=== PATIENT | female | born 1955 | race Caucasian/White ===

== ENCOUNTER 2017-01-24 08:30 | Outpatient (CLI) | payer BC ==
[2017-01-24 12:50] LABS: BASOPHILS # (AUTO) 0.1 10^3/uL (0.0-0.1); BASOPHILS % (AUTO) 1.5 %; EOSINOPHILS # (AUTO) 0.3 10^3/uL (0.0-0.7); EOSINOPHILS % (AUTO) 4.5 %; HCT - HEMATOCRIT 45.5 % (37.0-47.0); LYMPHOCYTES # (AUTO) 1.9 10^3/uL (1.5-3.5); LYMPHOCYTES % (AUTO) 32.1 %; MEAN CORPUSCULAR HEMOGLOBIN 30.4 pg (27.0-31.0); MEAN CORPUSCULAR VOLUME 92.1 fL (81.0-99.0); MEAN PLATELET VOLUME 7.9 fL (7.9-10.8); MONOCYTES # (AUTO) 0.4 10^3/uL (0.0-1.0); MONOCYTES % (AUTO) 7.2 %; NEUTROPHILS # (AUTO) 3.2 10^3/uL (1.5-6.6); NEUTROPHILS % (AUTO) 54.7 %; RED BLOOD COUNT 4.93 10^6/uL (4.20-5.40); RED CELL DISTRIBUTION WIDTH 13.9 % (12.0-15.0); UNCORRECTED WHITE BLOOD COUNT 5.9 x10^3/uL; WHITE BLOOD COUNT 5.9 x10^3/uL (4.8-10.8)
[2017-01-24 13:13] LABS: HEMOGLOBIN A1C 1.05 g/dL
[2017-01-24 13:27] LABS: ALBUMIN/GLOBULIN RATIO 1.4 (1.0-2.2); BILIRUBIN,TOTAL 0.8 mg/dL (0.2-1.0); BUN - BLOOD UREA NITROGEN 31 mg/dL (6-20); CARBON DIOXIDE - CO2 29 mmol/L (21-32); CHLORIDE 99 mmol/L (101-111); CHOL/HDL RATIO 2.4 (<4.4); CHOLESTEROL 201 mg/dL; GFR - MDRD 56 (>89); GLUCOSE 178 mg/dL (70-100); HDL CHOLESTEROL 84 mg/dL; LDL/HDL RATIO 1.2 (<4.4); POTASSIUM 4.3 mmol/L (3.5-5.0); SODIUM 137 mmol/L (135-145); TOTAL PROTEIN 7.5 g/dL (6.7-8.2); TRIGLYCERIDES 89 mg/dL; VLDL CHOLESTEROL 18 mg/dL
== END 2017-01-24 08:31 | disposition home or self-care (01) ==
LOC: LAB.WCP 08:30
PROVIDERS: ATTEND Family Medicine
DX: E78.5 Hyperlipidemia, unspecified (principal); E11.9 Type 2 diabetes mellitus without complications; Z79.4 Long term (current) use of insulin; L71.9 Rosacea, unspecified
CPT/HCPCS: 36415; 80053; 80061; 82043; 83036; 85025

== ENCOUNTER 2017-03-27 12:57 | Outpatient (CLI) | payer BC ==
--- NOTE | 2017-03-27 15:59 | Mammography Report ---
DIGITAL BILATERAL MAMMOGRAPHY: 03/27/2017 HISTORY: Status post lumpectomy for cancer with radiation therapy. COMPARISON: 03/10/2016, 03/20/2015, 01/06/2014, 06/13/2013, 11/09/2012, 2011, 11/18/2011, 11/04/2011, and 11/18/2010. TECHNIQUE: Bilateral digital CC and MLO projections with an additional exaggerated left CC view. FINDINGS: The breast tissue is heterogeneously dense. Postsurgical changes in the right breast with architectural distortion dystrophic calcifications, and surgical clips as before. Slight asymmetric density in the posterior left upper outer quadrant is also stable. No suspicious new masses, new architectural distortion, skin thickening, suspicious microcalcifications, or interval change. IMPRESSION: BENIGN. BIRADS 2. SUGGEST RETURN TO ROUTINE SCREENING IN 12 MONTHS. STANDARD QUALIFYING STATEMENTS 1. This examination was reviewed with the aid of Computer-Aided Detection (CAD). 2. A negative or benign imaging report should not delay biopsy if clinically suspicious findings are present. Consider surgical consultation if warranted. More than 5% of cancers are not identified by imaging. 3. Dense breasts may obscure an underlying neoplasm. JOB #: [id number] EXT JOB #: [id number] JARRED
== END 2017-03-27 12:58 | disposition home or self-care (01) ==
LOC: DI 12:57
PROVIDERS: ATTEND Internal Medicine Hematology & Oncology
DX: C50.911 Malignant neoplasm of unspecified site of right female breast (principal)
CPT/HCPCS: 77066

== ENCOUNTER 2017-06-09 15:30 | Outpatient (CLI) | payer BC ==
--- NOTE | 2017-06-09 16:53 | XRAY Preliminary Report ---
Exam: XR CERVICAL SPINE 2 VIEW IMPRESSION: 1. No acute bony abnormality. 2. Suspect central and neural foraminal compromise at C4-C5, C5-C6 and C6-C7. [facility] SITE ID: [id number]
--- NOTE | 2017-06-09 17:22 | XRAY Report ---
EXAM: CERVICAL SPINE RADIOGRAPHY EXAM DATE: 06/09/2017 04:14 PM. CLINICAL HISTORY: Chronic neck pain. COMPARISONS: None. TECHNIQUE: 4 views. FINDINGS: Alignment: Normal. No spondylolisthesis or scoliosis. Bones: The cervical vertebral bodies and posterior elements are well visualized from the skull base t hrough C7-T1. No fractures or bone lesions. Disks: Narrowing as follows: Moderate to marked C4-C5 with moderate osteophytes, moderate C5-C6 with tiny osteophytes, moderate C6-C7 with small osteophytes. Facets: Marked degenerative changes bilaterally C4-C5, C5-C6 and C6-C7. Soft Tissues: Normal. No prevertebral soft tissue swelling. The visualized lung apices are clear. IMPRESSION: 1. No acute bony abnormality. 2. Suspect central and neural foraminal compromise at C4-C5, C5-C6 and C6-C7. [facility] Referring Provider Line: [phone] SITE ID: [id number]
--- NOTE | 2017-06-09 20:01 | XRAY Preliminary Report ---
Exam: XR SHOULDER 2 VIEW BILAT IMPRESSION: Mild degenerative changes both shoulders. [facility] SITE ID: [id number]
--- NOTE | 2017-06-09 20:08 | XRAY Report ---
EXAM: BILATERAL SHOULDER RADIOGRAPHY EXAM DATE: 06/09/2017 04:13 PM. CLINICAL HISTORY: Chronic bilateral shoulder pain. No precipitating injury. COMPARISON: None. TECHNIQUE: Two views right shoulder, 3 views left shoulder. FINDINGS: Bones: Normal. No fracture or bone lesion. Joints: Small osteophytes and minimal subcortical sclerosis at the right acromioclavicular joint. Mild narrowing of the right glenohumeral joint with mild uniform subcortical sclerosis. Normal calibe r right subacromial space. Type II acromion. Small osteophytes and subcortical sclerosis of the left acromioclavicular joint. Mildly narrowed left glenohumeral joint without bony reactive changes. Normal caliber left subacromia l space. Type II acromion. Soft tissues: The visualized hemithorax is unremarkable. No soft tissue calcification nor swelling. IMPRESSION: Mild degenerative changes both shoulders. [facility] Referring Provider Line: [phone] SITE ID: [id number]
== END 2017-06-09 15:31 | disposition home or self-care (01) ==
LOC: DI 15:30
PROVIDERS: ATTEND Family Medicine
DX: M19.012 Primary osteoarthritis, left shoulder (principal); M19.011 Primary osteoarthritis, right shoulder; M47.892 Other spondylosis, cervical region
CPT/HCPCS: 72040

== ENCOUNTER 2017-06-27 07:47 | Outpatient (CLI) | payer BC ==
--- NOTE | 2017-06-27 10:08 | MRI Report ---
EXAM: RIGHT KNEE MRI WITHOUT CONTRAST EXAM DATE: 06/27/2017 09:01 AM. CLINICAL HISTORY: Right knee patellar pain and bruising. Past history of breast cancer. COMPARISON: X-ray 05/01/2017. TECHNIQUE: Multiplanar, multisequence T1-weighted and fluid-sensitive sequences of the knee without c ontrast. Other: None. FINDINGS: Bones: There is marked edema of the medial femoral and tibial condyle. There is subchondral sclerosis and cyst formation in the mid medial femoral condyle, suggestive of a prior osteochondral injury. Ma rrow edema may be secondary to degenerative change or contusion. There are medial compartment osteoph ytes. There are small lateral compartment osteophytes. Contusion of the posterior margin of the later al tibial condyle and the tibial tuberosity. Articular Cartilage: There is moderate to severe thinning of the hyaline cartilage of the medial comp artment with regions of denuded bone overlying the subchondral sclerosis of the medial femoral condyl e. There is mild to moderate hyaline cartilage thinning in the lateral compartment, and minimal beltran lofemoral compartment cartilage erosion. There is marrow edema at the medial aspect of the patella. Medial Meniscus: There is a complex tear at the junction of the posterior horn and body. There is fra fercho of the free margin of the posterior horn. There is medial extrusion. Lateral Meniscus: The lateral meniscus is intact. Cruciate Ligaments: The anterior and posterior cruciate ligaments are intact. Collateral Ligaments: The medial collateral and lateral collateral ligamentous structures are intact. Tendons: The quadriceps, patellar, semimembranosus, and popliteus tendons are unremarkable. Musculature: No edema or fatty atrophy. Other: There is a moderate-sized joint effusion. There is a large popliteal cyst which has leaked int o the soft tissues in the medial aspect of the calf. There is mild to moderate synovial thickening pa rticularly in the suprapatellar pouch. There are no visible loose bodies. The medial and lateral reti nacula are intact. The subcutaneous tissues and fat pads are unremarkable. IMPRESSION: 1. 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 2. Complex tear of the junction of the posterior horn and body of the medial meniscus with extrusion. 3. Marked marrow edema in the medial compartment as well as in the tibial tuberosity, and posterior m argin of the lateral tibial condyle. The findings may be secondary to contusions or degenerative harp ge. 4. Moderate-sized joint effusion with a large popliteal cyst that appears to have leaked into the pos terior soft tissues of the calf. [facility] MUSCULOSKELETAL RADIOLOGY SECTION Referring Provider Line: [phone] SITE ID: [id number]
== END 2017-06-27 07:48 | disposition home or self-care (01) ==
LOC: DI 07:47
PROVIDERS: ATTEND Orthopaedic Surgery
DX: S83.241A Other tear of medial meniscus, current injury, right knee, initial encounter (principal); M17.11 Unilateral primary osteoarthritis, right knee; M71.21 Synovial cyst of popliteal space [Baker], right knee; M25.461 Effusion, right knee

== ENCOUNTER 2017-06-27 07:48 | Outpatient (CLI) | payer BC ==
--- NOTE | 2017-06-27 09:20 | MRI Report ---
EXAM: MRI CERVICAL SPINE WITHOUT CONTRAST EXAM DATE: 06/27/2017 08:32 AM. CLINICAL HISTORY: NECK AND BACK PAIN. History of breast cancer. COMPARISONS: Radiograph cervical spine 06/09/2017 TECHNIQUE: Multiplanar, multisequence T1-weighted and fluid-sensitive sequences of the cervical spine without contrast. Other: None. FINDINGS: Neurologic Structures: The visualized posterior fossa structures are unremarkable. No signal abnormal ity in the visualized spinal cord. Alignment: No scoliosis or spondylolisthesis. Bone Marrow: No gross fractures or bone lesions. No marrow edema. There is moderate diffuse, possibly congenital narrowing of the central canal, canal AP diameter cristiano uring 11 mm at C3 level, 12 mm at C4 level, 11 mm at C5 level, and 12 mm at C6 and C7 levels, for exa mple. Interspace Levels/Facets: C1-C2: Unremarkable. C2-C3: Mild to moderate left facet arthropathy. No significant central canal or foraminal narrowing. C3-C4: Minimal diffuse disk bulge. No significant central canal or foraminal narrowing. C4-C5: Mild disk height loss and desiccation. Moderate diffuse disk bulge with superimposed left cent ral disk protrusion measuring or millimeter. This indents the left aspect cord. Moderate central myranda l narrowing. Mild left foraminal narrowing. No right foraminal narrowing. C5-C6: Moderate disk height loss and desiccation. Moderate diffuse disk bulge indenting the cord. Mod erate central canal narrowing. No foraminal narrowing. C6-C7: Moderate disk height loss and desiccation. Moderate diffuse disk osteophyte complex, asymmetri c to left. Moderate indentation of the cord, particularly the left aspect. Moderate central canal mohini rowing. Mild left foraminal narrowing. No right foraminal narrowing. C7-T1: Mild diffuse disk bulge. Mild central canal narrowing. No foraminal narrowing. Musculature: Normal. No edema or fatty atrophy. Other: The paravertebral and prevertebral soft tissues are normal. IMPRESSION: 1. Moderate multilevel degenerative spondylosis, as detailed above and summarized below, superimposed on moderate diffuse, possibly congenital narrowing of the central canal, with canal AP diameters as detailed above. No evidence of acute fracture or malalignment. No cord signal abnormality at any leve l. No bone marrow edema. 2. C4-C5 level demonstrates moderate central canal narrowing. Mild left foraminal narrowing. No right foraminal narrowing. 3. C5-C6 level demonstrates moderate central canal narrowing. No foraminal narrowing. 4. C6-C7 level demonstrates moderate central canal narrowing. Mild left foraminal narrowing. No right foraminal narrowing. 5. C7-T1 level demonstrates mild central canal narrowing. No foraminal narrowing. [facility] Referring Provider Line: [phone] SITE ID: [id number]
== END 2017-06-27 07:49 | disposition home or self-care (01) ==
LOC: DI 07:48
PROVIDERS: ATTEND Family Medicine
DX: M47.892 Other spondylosis, cervical region (principal); M50.31 Other cervical disc degeneration, high cervical region
CPT/HCPCS: 72141

== ENCOUNTER 2017-08-15 07:36 | Outpatient (CLI) | payer BC ==
[2017-08-15 08:07] LABS: CALCIUM 9.7 mg/dL (8.5-10.3)
[2017-08-15 08:12] LABS: CREATININE,URINE 104.3 mg/dL; MICROALBUM/CREATININE RATIO,UR 10.5 ug/mg (<30.0); MICROALBUMIN,URINE 1.1 mg/dL (0-300.0)
[2017-08-15 08:17] LABS: HEMOGLOBIN A1C 0.99 g/dL; HEMOGLOBIN A1C % 8.2 % (4.6-6.2)
== END 2017-08-15 07:37 | disposition home or self-care (01) ==
LOC: LAB 07:36
PROVIDERS: ATTEND Internal Medicine Endocrinology, Diabetes & Metabolism
DX: E10.9 Type 1 diabetes mellitus without complications (principal)
CPT/HCPCS: 36415; 80048; 82043; 82570; 83036

== ENCOUNTER 2017-10-09 15:29 | Emergency (ER) | payer BC ==
[2017-10-09 15:37] VITALS: BP 146/87
--- NOTE | 2017-10-09 17:11 | ED Physician Documentation ---
History of Present Illness - Stated complaint Stated Complaint: L ANKLE/FOOT PX - Chief complaint Chief Complaint: Ext Problem - Additonal information Additional information: 62 female recent trip to [facility] developed foot swelling and then white patches and some calf pain no injury no new shoes no contact with chemicals etc no bites called PMD who advised she might have a hidden blood clot and to come to ED for eval no CP no SOA Review of Systems Constitutional: denies: Fever Musculoskeletal: reports: Extremity pain PD PAST MEDICAL HISTORY - Past Medical History Past Medical History: Yes Cardiovascular: None Respiratory: None Endocrine/Autoimmune: Type 2 diabetes GI: None : None Psych: None Musculoskeletal: None Derm: Rosacea - Past Surgical History General: 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: Tubal ligation, Hysterectomy - Present Medications Home Medications: Ambulatory Orders Medication Instructions Recorded Confirmed Anastrozole 1 mg PO DAILY 04/10/13 02/28/17 Aspirin [Aspir 81] 81 mg PO DAILY 04/30/13 02/28/17 Insulin Glargine [Lantus] 12 unit SUBQ QPM 04/30/13 02/28/17 Multivitamin [Multivitamins] 1 each PO DAILY 04/30/13 02/28/17 [place]-3 Fatty Acids [Fish Oil] 1,000 mg PO DAILY 04/30/13 02/28/17 Simvastatin 20 mg PO DAILY 04/30/13 02/28/17 Turmeric Root Extract [Turmeric] 1,000 mg PO DAILY 04/30/13 02/28/17 Canagliflozin [Invokana] 100 mg PO DAILY 08/25/15 02/28/17 Insulin Lispro [Humalog] 5 unit SUBQ DAILY 08/25/15 02/28/17 metFORMIN [Glucophage] 1,000 mg PO BID 08/25/15 02/28/17 Insulin Lispro [Humalog Kwikpen] 6 unit SQ BID 02/23/16 02/28/17 Valerian Root Extract [Valerian] 150 mg PO QPM 02/28/17 02/28/17 Ibuprofen [Motrin] 400 mg PO Q8H PRN #12 tablet 10/09/17 - Allergies Allergies/Adverse Reactions: Allergies Allergy/AdvReac Type Severity Reaction Status Date / Time No Known Drug Allergies Allergy Verified 10/09/17 15:36 - Social History Does the pt smoke?: No Smoking Status: Never smoker PD ED PE NORMAL - Vitals Vital signs reviewed: Yes - Cardiac Cardiac: RRR - Respiratory Respiratory: No respiratory distress, Clear bilaterally - Extremities Extremities: Other (L foot diffusely swollen, erythema to distal lateral dorsal foot s warmth, small patches or white crust no vesicles petecchiae bullar, no open wounds, some calf TTP s swelling or cord, MSV intact) Results - Vitals Vitals: Vital Signs - 24 hr 10/09/17 15:31 Temperature 36.5 C Heart Rate 81 Respiratory 16 Rate Blood Pressure 146/87 H O2 Saturation 99 Oxygen O2 Source Room air PD MEDICAL DECISION MAKING - Sepsis Event Vital Signs: Vital Signs - 24 hr 10/09/17 15:31 Temperature 36.5 C Heart Rate 81 Respiratory 16 Rate Blood Pressure 146/87 H O2 Saturation 99 Oxygen O2 Source Room air Departure - Departure Disposition: 01 Home, Self Care Clinical Impression: Swelling of left foot Condition: Good Follow-Up: Marlys Cazares MD [Primary Care Provider] - Prescriptions: Ibuprofen [Motrin] 400 mg PO Q8H PRN #12 tablet PRN Reason: inflammation Comments: The ultrasound is fine - no blood clot was seen - but you do have a bakers cyst which is an out pouching of fluid from the knee joint and is not a concern unless it hurts or hinders you from bending your knee. Based on the history i do not think there would be any broken bones so an xray will not help And the exam does not suggest an infection. So I recommend symtpomatic treatment - an JENAE wrap and elevation and ice to decrease the swelling, and NSAIDS such as motrin to decrease inflammation Follow up with your PMD if not better by the weekend. Return if worse
--- NOTE | 2017-10-09 17:22 | Ultrasound Report ---
Procedure Date: 10/09/2017 Accession Number: [id number] / [id number] Procedure: US - Duplex Ext Veins Left CPT Code: FULL RESULT: EXAM: LEFT LOWER EXTREMITY VENOUS ULTRASOUND EXAM DATE: 10/09/2017 05:07 PM. CLINICAL HISTORY: Swollen foot sore calf. COMPARISON: None. TECHNIQUE: Real-time sonographic vascular imaging was performed by the chiller hand through the lower extremity utilizing both color-flow and Doppler spectral analysis. Multiple printing supplies sales representative static images were saved for review. FINDINGS: Common Femoral Vein (CFV): Normal. CFV-GSV Junction: Normal. Profunda Femoral Vein (PFV): Normal. Femoral Vein (FV) Prox: Normal. Femoral Vein (FV) Mid: Normal. Femoral Vein (FV) Dist: Normal. Popliteal Vein: Normal. Posterior Tibial Veins: Normal. Peroneal Veins: Normal. Mildly complex left Leone's cyst measures 4.8 x 2.1 x 3.3 cm. IMPRESSION: No evidence for deep venous thrombosis. Left Leone's cyst. [facility]
== END 2017-10-09 17:57 | disposition home or self-care (01) ==
LOC: ED 15:29
DX: M79.89 Other specified soft tissue disorders (principal); E11.9 Type 2 diabetes mellitus without complications; Z79.4 Long term (current) use of insulin; Z79.82 Long term (current) use of aspirin
CPT/HCPCS: 99283

== ENCOUNTER 2018-05-17 15:29 | Outpatient (CLI) | payer BC ==
--- NOTE | 2018-05-21 09:16 | Mammography Report ---
Reason: SCREENING MAMMO,RT BREAST CA Procedure Date: 05/17/2018 Accession Number: [id number] / [id number] Procedure: LIAT - Screening Mammo w/Marek CPT Code: FULL RESULT: EXAM: Screening Mammo w/Marek DATE: 05/17/2018 3:54 PM CLINICAL HISTORY: Screening encounter. Personal history of right breast cancer status post lumpectomy and radiation. Family history of breast cancer in the mother at the age of 45, a maternal aunt at the age of 34, a maternal great grandmother, and a maternal cousin at the age of 52. TECHNIQUE: Bilateral CC and MLO views were obtained. COMPARISON: 03/27/2017 through 11/09/2012. FINDINGS: The breasts demonstrate heterogeneously dense fibroglandular parenchyma bilaterally. Postsurgical changes in the right breast are stable. No suspicious masses, clustered microcalcifications, or regions of architectural distortion are identified. IMPRESSION: Benign findings RECOMMENDATION: Routine annual screening unless otherwise clinically indicated. BIRADS CATEGORY 2: Benign findings STANDARD QUALIFYING STATEMENTS: 1. This examination was not reviewed with the aid of Computer-Aided Detection (CAD). 2. A negative or benign imaging report should not preclude biopsy if clinically suspicious findings are present. 3. Dense breasts may obscure an underlying neoplasm. 4. This examination was reviewed with the aid of 3D breast imaging (tomosynthesis).
== END 2018-05-17 15:30 | disposition home or self-care (01) ==
LOC: DI 15:29
PROVIDERS: ATTEND Internal Medicine Hematology & Oncology
DX: Z12.31 Encounter for screening mammogram for malignant neoplasm of breast (principal); Z85.3 Personal history of malignant neoplasm of breast; Z80.3 Family history of malignant neoplasm of breast
CPT/HCPCS: 77063; 77067

== ENCOUNTER 2018-09-14 08:00 | Outpatient (CLI) | payer MEDICARE, OTHER ==
[2018-09-14 12:54] LABS: BASOPHILS # (AUTO) 0.1 10^3/uL (0.0-0.1); BASOPHILS % (AUTO) 1.5 %; EOSINOPHILS # (AUTO) 0.2 10^3/uL (0.0-0.7); EOSINOPHILS % (AUTO) 5.3 %; HGB - HEMOGLOBIN 13.2 g/dL (12.0-16.0); LYMPHOCYTES # (AUTO) 1.3 10^3/uL (1.5-3.5); LYMPHOCYTES % (AUTO) 32.6 %; MEAN CORPUSCULAR HEMOGLOBIN 29.7 pg (27.0-31.0); MEAN CORPUSCULAR HGB CONC 33.4 g/dL (32.0-36.0); MEAN PLATELET VOLUME 8.4 fL (7.9-10.8); MONOCYTES # (AUTO) 0.4 10^3/uL (0.0-1.0); MONOCYTES % (AUTO) 9.6 %; NEUTROPHILS # (AUTO) 2.1 10^3/uL (1.5-6.6); PLT - PLATELET COUNT 208 10^3/uL (130-450); RED BLOOD COUNT 4.45 10^6/uL (4.20-5.40); RED CELL DISTRIBUTION WIDTH 13.6 % (12.0-15.0); WHITE BLOOD COUNT 4.1 x10^3/uL (4.8-10.8)
[2018-09-14 12:57] LABS: ALBUMIN/GLOBULIN RATIO 1.3 (1.0-2.2); ALKALINE PHOSPHATASE 44 IU/L (42-121); ALT ALANINE AMINOTRANSFERASE 21 IU/L (10-60); AST ASPARTATE AMINOTRANSFERASE 23 IU/L (10-42); BUN - BLOOD UREA NITROGEN 21 mg/dL (6-20); CHOL/HDL RATIO 2.8 (<4.4); CHOLESTEROL 181 mg/dL; CREATININE 0.9 mg/dL (0.4-1.0); GFR - MDRD 63 (>89); HDL CHOLESTEROL 64 mg/dL; LDL CHOLESTEROL,CALCULATED 96 mg/dL; LDL/HDL RATIO 1.5 (<4.4); VLDL CHOLESTEROL 21 mg/dL
[2018-09-14 13:01] LABS: CALCIUM 9.4 mg/dL (8.5-10.3); CARBON DIOXIDE - CO2 27 mmol/L (21-32); CHLORIDE 101 mmol/L (101-111); GLUCOSE 260 mg/dL (70-100); SODIUM 137 mmol/L (135-145)
[2018-09-14 13:11] LABS: HEMOGLOBIN A1C 1.29 g/dL; HEMOGLOBIN A1C % 10.6 % (4.6-6.2)
== END 2018-09-14 23:59 | disposition home or self-care (01) ==
LOC: LAB.WCP 08:00
PROVIDERS: ATTEND Family Medicine
DX: E11.9 Type 2 diabetes mellitus without complications (principal); M54.2 Cervicalgia; Z79.4 Long term (current) use of insulin; E78.5 Hyperlipidemia, unspecified
CPT/HCPCS: 36415; 80053; 80061; 83036; 83721; 84443; 85025

== ENCOUNTER 2018-09-20 08:00 | Outpatient (CLI) | payer MEDICARE, OTHER ==
[2018-09-20 13:44] LABS: CREATININE,URINE 118.3 mg/dL; MICROALBUM/CREATININE RATIO,UR 7.6 ug/mg (<30.0); MICROALBUMIN,URINE 0.9 mg/dL (0-300.0)
== END 2018-09-20 23:59 | disposition home or self-care (01) ==
LOC: LAB.WCP 08:00
PROVIDERS: ATTEND Family Medicine
DX: E11.9 Type 2 diabetes mellitus without complications (principal)
CPT/HCPCS: 82043; 82570

== ENCOUNTER 2018-10-26 08:54 | Outpatient (CLI) | payer MEDICARE, OTHER | END 2018-10-26 08:55 | disposition home or self-care (01) | LOC: NS 08:54 | PROVIDERS: ATTEND Family Medicine | DX: Z71.3 Dietary counseling and surveillance (principal); E11.9 Type 2 diabetes mellitus without complications | CPT/HCPCS: 97802 ==

== ENCOUNTER 2018-12-28 09:11 | Outpatient (CLI) | payer MEDICARE, OTHER ==
[2018-12-28 10:02] LABS: HB2 TOTAL 15.1 g/dL; HEMOGLOBIN A1C 1.4 g/dL; HEMOGLOBIN A1C % 10.6 % (4.6-6.2)
== END 2018-12-28 09:12 | disposition home or self-care (01) ==
LOC: LAB 09:11
PROVIDERS: ATTEND Nurse Practitioner
DX: E10.9 Type 1 diabetes mellitus without complications (principal)
CPT/HCPCS: 36415; 83036

== ENCOUNTER 2019-04-02 10:24 | Outpatient (CLI) | payer MEDICARE, OTHER ==
[2019-04-02 12:55] LABS: HB2 TOTAL 13.7 g/dL; HEMOGLOBIN A1C 0.92 g/dL; HEMOGLOBIN A1C % 8.3 % (4.6-6.2)
== END 2019-04-02 10:25 | disposition home or self-care (01) ==
LOC: LAB 10:24
PROVIDERS: ATTEND Nurse Practitioner
DX: E10.9 Type 1 diabetes mellitus without complications (principal)
CPT/HCPCS: 36415; 83036

== ENCOUNTER 2019-05-17 09:57 | Outpatient (CLI) | payer MEDICARE, OTHER ==
--- NOTE | 2019-05-20 11:42 | Mammography Report ---
Reason: ROUTINE MAMMO Procedure Date: 05/17/2019 Accession Number: [id number] / [id number] Procedure: LIAT - Screening Mammo w/Marek CPT Code: Final Report FULL RESULT: EXAM: Screening Mammo w/Marek DATE: 05/17/2019 10:24 AM CLINICAL HISTORY: Screening encounter. Personal history of breast cancer status post right breast lumpectomy in 2003 and family history of breast cancer in the mother at the age of 45 as well as a maternal aunt at the age of 34. TECHNIQUE: (B) - Bilateral CC and MLO views were obtained. COMPARISON: 05/17/2018 through 08/31/2009. PARENCHYMAL PATTERN: (D) - The breast(s) demonstrate(s) heterogeneously dense fibroglandular parenchyma. FINDINGS: Postsurgical changes in the right breast are essentially unchanged, typically benign. There are no suspicious masses, calcifications, or areas of distortion. IMPRESSION: Benign findings. BI-RADS category 2. RECOMMENDATION: (ANNUAL) - Recommend routine annual screening mammography. BI-RADS CATEGORY: (2) - Benign Findings. STANDARD QUALIFYING STATEMENTS: 1. This examination was not reviewed with the aid of Computer-Aided Detection (CAD). 2. A negative or benign imaging report should not preclude biopsy if clinically suspicious findings are present. 3. Dense breasts may obscure an underlying neoplasm. 4. This examination was reviewed with the aid of 3D breast imaging (tomosynthesis).
== END 2019-05-17 09:58 | disposition home or self-care (01) ==
LOC: DI 09:57
PROVIDERS: ATTEND Internal Medicine Hematology & Oncology
DX: Z12.31 Encounter for screening mammogram for malignant neoplasm of breast (principal); Z85.3 Personal history of malignant neoplasm of breast; Z80.3 Family history of malignant neoplasm of breast
CPT/HCPCS: 77063; 77067

== ENCOUNTER 2019-10-18 08:42 | Outpatient (CLI) | payer MEDICARE ==
[2019-10-18 09:16] LABS: BUN - BLOOD UREA NITROGEN 30 mg/dL (6-20); CALCIUM 9.5 mg/dL (8.5-10.3); CARBON DIOXIDE - CO2 28 mmol/L (21-32); CHLORIDE 103 mmol/L (101-111); CHOL/HDL RATIO 2.6 (<4.4); CHOLESTEROL 187 mg/dL; GLUCOSE 103 mg/dL (70-100); HDL CHOLESTEROL 73 mg/dL; LDL CHOLESTEROL,CALCULATED 100 mg/dL; LDL/HDL RATIO 1.4 (<4.4); SODIUM 140 mmol/L (135-145); VLDL CHOLESTEROL 14 mg/dL
[2019-10-18 09:30] LABS: HB2 TOTAL 14.5 g/dL; HEMOGLOBIN A1C 1.22 g/dL; HEMOGLOBIN A1C % 9.8 % (4.6-6.2)
[2019-10-18 09:47] LABS: MICROALBUM/CREATININE RATIO,UR 16.3 ug/mg (<30.0); MICROALBUMIN,URINE 2.3 mg/dL (0-300.0)
== END 2019-10-18 08:43 | disposition home or self-care (01) ==
LOC: LAB 08:42
PROVIDERS: ATTEND Nurse Practitioner
DX: E13.9 Other specified diabetes mellitus without complications (principal)
CPT/HCPCS: 36415; 80048; 80061; 82043; 82570; 83036; 83721

== ENCOUNTER 2020-01-28 08:54 | Outpatient (CLI) | payer MEDICARE ==
[2020-01-28 09:18] LABS: CHOL/HDL RATIO 3.3 (<4.4); CHOLESTEROL 218 mg/dL; HDL CHOLESTEROL 67 mg/dL; LDL CHOLESTEROL,CALCULATED 135 mg/dL; VLDL CHOLESTEROL 16 mg/dL
[2020-01-28 12:07] LABS: HEMOGLOBIN A1c% 10.5 % (4.27-6.07)
== END 2020-01-28 08:55 | disposition home or self-care (01) ==
LOC: LAB 08:54
PROVIDERS: ATTEND Nurse Practitioner
DX: E78.2 Mixed hyperlipidemia (principal); E10.69 Type 1 diabetes mellitus with other specified complication
CPT/HCPCS: 36415; 80061; 83036; 83721

== ENCOUNTER 2020-03-20 08:26 | Outpatient (CLI) | payer MEDICARE ==
--- NOTE | 2020-03-20 09:24 | DEXA Report ---
PROCEDURE: Dexa Spine and/or Hip INDICATIONS: POST MENOPAUSAL TECHNIQUE: Dual energy x-ray absorptiometry (DXA) was performed on a PPI System. Regions measur ed are the AP Spine, femoral neck, and if needed forearm. COMPARISON: None. FINDINGS: Lumbar Spine: Bone Mineral Density 1.226 g/cm/cm,T score 0.4, Left Hip: Bone Mineral Density 0.959 g/cm/cm,T score -0.4, Left Femoral Neck: Bone Mineral Density 1.031 g/cm/cm, T score -0.1, (T score greater or equal to -1.0: NORMAL) (T score from -1.1 to -2.4: OSTEOPENIA) (T score less than or equal to -2.5 to: OSTEOPOROSIS) Impression: Normal bone mineral density. Patients with diagnosis of osteoporosis or osteopenia should have regular bone mineral density assess ment. For those eligible for Medicare, routine testing is allowed once every 2 years. Testing frequ ency can be increased for patients who have rapidly progressing disease or for those who are receivin g medical therapy to restore bone mass. Reviewed by: Herbert Laguerre MD on 03/20/2020 9:22 AM PST Approved by: Herbert Laguerre MD on 03/20/2020 9:22 AM PST Station ID: [id number]
== END 2020-03-20 08:27 | disposition home or self-care (01) ==
LOC: DI 08:26
PROVIDERS: ATTEND Internal Medicine Hematology & Oncology
DX: Z78.0 Asymptomatic menopausal state (principal)
CPT/HCPCS: 77080

== ENCOUNTER 2020-03-24 11:32 | Outpatient (CLI) | payer MEDICARE | END 2020-03-24 11:33 | disposition home or self-care (01) | LOC: LAB.N 11:32 | PROVIDERS: ATTEND Physician Assistant Medical | DX: E11.9 Type 2 diabetes mellitus without complications (principal); C50.911 Malignant neoplasm of unspecified site of right female breast; Z13.9 Encounter for screening, unspecified | CPT/HCPCS: 36415; 82043; 84443 ==

== ENCOUNTER 2020-04-28 08:49 | Outpatient (CLI) | payer MEDICARE ==
[2020-04-28 14:00] LABS: HEMOGLOBIN A1c% 10.4 % (4.27-6.07)
--- OUTSIDE RECORDS SUMMARY | 2020-05-06 00:07 | EXTERNAL MEDICAL SUMMARY RPT | Continuity of Care Document ---
:1955 Demographics Phone Unavailable Preferred Language pat Marital Status Unknown Mosque Affiliation Unknown Race Unknown Ethnic Group Unknown Author Organization [place] Address [address] [phone] Phone Care Team Providers Name Role Phone Young Unavailable Unavailable PA-C Unavailable Unavailable [place] Unavailable Unavailable Eligio Unavailable Unavailable Problems date description facility 2012-09-06 11:00 MALIGN NEOPL BREAST NOS [facility] 2012-09-06 11:00 HORMONE REPLACEMENT THERAPY [facility] (POSTMENOPAUSAL) 2012-11-09 13:30 MALIGN NEOPL BREAST NOS [facility] 2013-03-07 07:47 DIAB CAITLYN WO COMPL, TYPE II OR [facility] UNSPEC TYPE, NOT UNCNTRLD 2013-03-07 07:47 HYPERLIPIDEMIA NEC/NOS [facility] 2013-03-07 07:47 OTH MED,LT,CURRENT USE [facility] 2013-06-13 13:42 HX OF BREAST MALIGNANCY [facility] 2013-06-13 13:42 SURGERY FOLLOW-UP, OTHER [facility] SURGERY 2020-02-28 11:00 TYPE 2 DIABETES MELLITUS [facility] WITHOUT COMPLICATIONS 2020-02-28 11:00 ENCNTR FOR FOLLOW-UP EXAM AFTER [facility] TRT FOR MALIGNANT NEOPLASM 2020-02-28 11:00 PERSONAL HISTORY [facility] 2020-02-28 11:00 PERSONAL HISTORY OF IRRADIATION [facility] 2020-03-02 10:15 TYPE 2 DIABETES MELLITUS [facility] WITHOUT COMPLICATIONS 2020-03-02 10:15 ENCNTR FOR FOLLOW-UP EXAM AFTER [facility] TRT FOR MALIGNANT NEOPLASM 2020-03-02 10:15 PERSONAL HISTORY [facility] NEOPLASM [facility] BREAST 2020-03-02 10:15 PERSONAL HISTORY OF IRRADIATION [facility] 2020-03-03 11:20 TYPE 2 DIABETES MELLITUS [facility] DIABETIC CHRONIC KIDNEY DISEASE 2020-03-03 11:20 TYPE 2 DIABETES [facility]LL[facility]US [facility] HYPERGLYCEMIA 2020-03-03 11:20 TYPE 2 DIABETES MELLITUS [facility] WITHOUT COMPLICATIONS 2020-03-03 11:20 HYPERKALEMIA [facility] 2020-03-03 11:20 CHRONIC KIDNEY DISEASE, STAGE 3 [facility] UNSPECIFIED 2020-03-03 11:20 ENCNTR FOR FOLLOW-UP EXAM AFTER [facility] TRTMT FOR MALIGNANT NEOPLASM 2020-03-03 11:20 [facility] (CURRENT) USE OF [facility] INSULIN 2020-03-03 11:20 OTHER [facility] (CURRENT) DRUG [facility] THERAPY 2020-03-03 11:20 PERSONAL HISTORY OF [facility] NEOPLASM OF BREAST 2020-03-03 11:20 PERSONAL HISTORY OF DISEASES OF [facility] 2020-03-03 11:20 PERSONAL HISTORY OF IRRADIATION [facility] 2020-03-23 09:00 TYPE 2 DIABETES MELLITUS [facility] DIABETIC CHRONIC KIDNEY DISEASE 2020-03-23 09:00 TYPE 2 DIABETES [facility]LL[facility]US WITH [facility] HYPERGLYCEMIA 2020-03-23 09:00 HYPERKALEMIA [facility] 2020-03-23 09:00 CHRONIC KIDNEY DISEASE, STAGE 3 [facility] UNSPECIFIED 2020-03-23 09:00 ENCNTR FOR FOLLOW-UP EXAM AFTER [facility] TRTMT FOR MALIGNANT NEOPLASM 2020-03-23 09:00 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 examination at a [facility] facility 2020-03-24 00:00:00 Encounter for screening, [facility]:00:00 Specialized medical examination [facility] 2020-03-24 11:32 MALIGNANT NEOPLASM OF UNSP SITE [facility] OF RIGHT FEMALE BREAST 2020-03-24 11:32 TYPE 2 DIABETES MELLITUS [facility] WITHOUT COMPLICATIONS 2020-03-24 11:32 ENCOUNTER FOR SCREENING, [facility] UNSPECIFIED 2020-03-24 12:00 TYPE 2 DIABETES MELLITUS [facility] DIABETIC CHRONIC KIDNEY DISEASE 2020-03-24 12:00 TYPE 2 DIABETES [facility]LL[facility]US WITH [facility] HYPERGLYCEMIA 2020-03-24 12:00 HYPERKALEMIA [facility] 2020-03-24 12:00 CHRONIC KIDNEY DISEASE, STAGE 3 [facility] UNSPECIFIED 2020-03-24 12:00 ENCNTR FOR FOLLOW-UP EXAM AFTER [facility] TRTMT FOR MALIGNANT NEOPLASM 2020-03-24 12:00 [facility] (CURRENT) USE OF [facility] INSULIN 2020-03-24 12:00 OTHER [facility] (CURRENT) DRUG [facility] THERAPY 2020-03-24 12:00 PERSONAL HISTORY OF [facility]NT [facility] NEOPLASM OF BREAST 2020-03-24 12:00 PERSONAL HISTORY OF DISEASES OF [facility] 2020-03-24 12:00 PERSONAL HISTORY OF IRRADIATION [facility] 2020-04-02 00:00:00 Chronic kidney disease, [facility] unspecified [facility] 2020-04-02 00:00:00 Health-related behavior [facility] 2020-04-02 00:00:00 Tobacco use and exposure [facility] [place] [facility] 2020-04-02 00:00:[address] [facility] [place] [facility] 2020-04-02 00:00:00 Never smoker [facility] [facility] 2020-04-02 00:00:00 Alcohol use [facility] [facility] 2020-04-02 00:00:00 Tobacco smoking status [facility] [place] [facility] 2020-04-02 00:00:00 Total score? [facility] [facility] 2020-04-02 00:00:[address] Chronic renal failure [facility] P rimary Care [facility] 2020-04-03 11:30 TYPE 2 DIABETES MELLITUS [facility] DIABETIC CHRONIC KIDNEY DISEASE 2020-04-03 11:30 TYPE 2 DIABETES [facility]LLITUS WITH [facility] HYPERGLYCEMIA 2020-04-03 11:30 OTHER SPECIFIED DIABETES [facility] MELLITUS WITHOUT COMPLICATIONS 2020-04-03 11:30 HYPERKALEMIA [facility] 2020-04-03 11:30 CHRONIC KIDNEY DISEASE, STAGE 3 [facility] UNSPECIFIED 2020-04-03 11:30 ENCNTR FOR FOLLOW-UP EXAM AFTER [facility] TRTMT FOR MALIGNANT NEOPLASM 2020-04-03 11:30 OTHER SPECIFIED COUNSELING [facility] 2020-04-03 11:30 [facility] (CURRENT) USE OF [facility] INSULIN 2020-04-03 11:30 OTHER [facility] (CURRENT) DRUG [facility] THERAPY 2020-04-03 11:30 PERSONAL HISTORY OF [facility]NT [facility] NEOPLASM OF BREAST 2020-04-03 11:30 PERSONAL HISTORY OF DISEASES OF [facility] 2020-04-03 11:30 PERSONAL HISTORY OF IRRADIATION [facility] 2021-03-01 10:15 TYPE 2 DIABETES MELLITUS [facility] DIABETIC CHRONIC KIDNEY DISEASE 2021-03-01 10:15 TYPE 2 DIABETES [facility]US WITH [facility] HYPERGLYCEMIA 2021-03-01 10:15 OTHER SPECIFIED DIABETES [facility] MELLITUS WITHOUT COMPLICATIONS 2021-03-01 10:[address] 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 DEXAMETHASONE [facility] No Known Drug Allergies [facility] Decongestant [facility] AMOXICILLIN [facility] ATORVASTATIN [facility] [place] CEPHALEXIN [facility] [place] CLINDAMYCIN [facility] [place] EMPAGLIFLOZIN [facility] [place] HYDROCODONE [facility] NO KNOWN ENVIRONMENTAL ALLERGIES [facility] PENICILLINS [facility] No Known Allergies [facility]Y [facility] CITRIC ACID [facility] CODEINE [facility] LEVOFLOXACIN [facility] PENICILLINS [facility] PREDNISONE [facility] ORANGE OIL [facility] No Known Medication [facility]ergies [facility] SULFA (SULFONAMIDE ANTIBIOTICS) [facility] NO KNOWN ALLERGIES [facility]INE [facility] METOCLOPRAMIDE [facility] DEXAM[facility]ONE [facility] IBUPROFEN [facility] CEPHALEXIN [facility] SULFASALAZINE [facility] METFORMIN [facility]OXETINE [facility] Medications date description facility 2020-04-02 00:00:00 [facility] [place] [facility] 2020-04-02 00:00:00 null [facility] [place] [facility] 2020-04-02 00:00:00 ROSUVASTATIN CALCIUM [facility] [place] [facility] 2020-04-02 00:00:00 ROSUVASTATIN CALCIUM [facility] [place] [facility] Procedures date description facility 2020-03-24 00:00:00 MICROALBUMIN/CREAT RATIO [facility] [place] [facility] date description facility 2020-03-24 00:00:00 TSH WITH REFLEX TO FT4 [facility] [place] [facility] date description facility 2020-03-24 00:00:[facility] [place] [facility] Results Social History date description facility 2020-04-02 00:00:00 [facility] sm[facility] [place] [facility] Social History date description facility 2020-04-02 00:00:00 [facility] smoker [facility] [place] [facility] date description facility [phone]
== END 2020-04-28 08:50 | disposition home or self-care (01) ==
LOC: LAB 08:49
PROVIDERS: ATTEND Nurse Practitioner
DX: E11.65 Type 2 diabetes mellitus with hyperglycemia (principal)
CPT/HCPCS: 81599; 83036; 84681; 86341

== ENCOUNTER 2020-05-13 14:28 | Outpatient (CLI) | payer MEDICARE ==
--- NOTE | 2020-05-14 11:25 | Mammography Report ---
BILATERAL DIGITAL SCREENING MAMMOGRAM 3D/2D: 05/13/2020 CLINICAL: Routine screening. Comparison is made to exams dated: 05/17/2019 mammogram, 05/17/2018 mammogram, 03/27/2017 mammogram, mammogram, 03/20/2015 mammogram, and 01/06/2014 mammogram - [facility]. Th ere are scattered fibroglandular elements in both breasts. The right breast has post-operative findings. There is a possible asymmetry in the left breast posterior depth superior region seen on the mediolat eral oblique view only. This is more prominent. There also is a possible asymmetry in the left breast middle depth superior region seen on the mediol ateral oblique view only. This is more prominent. No other significant masses, calcifications, or other findings are seen in either breast. IMPRESSION: INCOMPLETE: NEEDS ADDITIONAL IMAGING EVALUATION The possible asymmetry in the left breast posterior depth superior region seen on the mediolateral ob lique view only is indeterminate. Additional views with possible ultrasound are recommended. The possible asymmetry in the left breast middle depth superior region seen on the mediolateral obliq ue view only is indeterminate. Additional views with possible ultrasound are recommended. This exam was interpreted at Station ID: [id number]. NOTE: For mammograms, a report in lay terms will be sent to the patient. Approximately 15% of breast malignancies will not be visualized mammographically. In the management of a palpable breast mass, a negative mammogram must not discourage biopsy of a clinically suspicious lesion. Electronically Signed By: Warren Ramirez M.D. aty/:05/13/2020 17:20:06 ACR BI-RADS Category 0: Incomplete 3340F PARENCHYMAL PATTERN: (A) - The breast(s) demonstrate(s) scattered fibroglandular densities. BI-RADS CATEGORY: (0) - 0 RECOMMENDATION: (ADDMAM) - Recommend additional mammographic views. no recall LATERALITY: (B)
== END 2020-05-13 14:29 | disposition home or self-care (01) ==
LOC: DI 14:28
PROVIDERS: ATTEND Internal Medicine Hematology & Oncology
DX: Z12.31 Encounter for screening mammogram for malignant neoplasm of breast (principal); N64.89 Other specified disorders of breast; C50.911 Malignant neoplasm of unspecified site of right female breast; E11.9 Type 2 diabetes mellitus without complications

== ENCOUNTER 2020-05-26 08:00 | Outpatient (CLI) | payer MEDICARE ==
[2020-05-26 11:09] LABS: HGB - HEMOGLOBIN 13.6 g/dL (12.0-16.0); MEAN CORPUSCULAR HEMOGLOBIN 31.4 pg (27.0-31.0); MEAN CORPUSCULAR HGB CONC 32.7 g/dL (32.0-36.0); MEAN CORPUSCULAR VOLUME 96.1 fL (81.0-99.0); MEAN PLATELET VOLUME 9.1 fL (7.9-10.8); RED BLOOD COUNT 4.33 10^6/uL (4.20-5.40); RED CELL DISTRIBUTION WIDTH 13.3 % (12.0-15.0)
[2020-05-26 11:24] LABS: CALCIUM 9.9 mg/dL (8.5-10.3)
[2020-05-26 11:47] LABS: TOTAL PROTEIN,URINE TIMED < 6 mg/dL
== END 2020-05-26 23:59 | disposition home or self-care (01) ==
LOC: LAB 08:00
PROVIDERS: ATTEND Internal Medicine Nephrology
DX: N05.9 Unspecified nephritic syndrome with unspecified morphologic changes (principal); R80.9 Proteinuria, unspecified; D70.9 Neutropenia, unspecified; D63.1 Anemia in chronic kidney disease
CPT/HCPCS: 36415; 80048; 82570; 84156; 85027

== ENCOUNTER 2020-05-29 10:23 | Outpatient (CLI) | payer MEDICARE ==
--- NOTE | 2020-06-01 16:41 | Ultrasound Report ---
LIMITED ULTRASOUND OF LEFT BREAST: 05/29/2020 CLINICAL: Patient returns today to evaluate a focal asymmetry in the left breast. Comparison is made to exams dated: 05/29/2020 mammogram, 05/13/2020 mammogram, 05/17/2019 mammogram, 04/25 mammogram, 03/27/2017 mammogram, and 03/10/2016 mammogram - [facility]. Real-time ultrasound of the left breast 12 o'clock, and retroareolar regions was performed. Deng sca le images of the real-time examination were reviewed. No significant abnormalities were seen sonographically in the left breast. A few mildly prominent ret roareolar ducts. No intraductal mass. IMPRESSION: NEGATIVE There is no sonographic evidence of malignancy in the region of possible asymmetries. A 1 year screening mammogram is recommended. Exam findings were conveyed to the patient. This exam was interpreted at Station ID: [id number]. Electronically Signed By: Moy Jimenez M.D. slc/:05/29/2020 12:56:56 Ultrasound BI-RADS: 1 Negative BI-RADS CATEGORY: (1) - 1 RECOMMENDATION: (ANNUAL) - Recommend routine annual screening mammography. [id number] 1 year screening LATERALITY: (B)
--- NOTE | 2020-06-01 16:41 | Mammography Report ---
UNILATERAL LEFT DIGITAL DIAGNOSTIC MAMMOGRAM 3D/2D: 05/29/2020 CLINICAL: Patient returns today to evaluate a focal asymmetry in the left breast. Comparison is made to exams dated: 05/13/2020 mammogram, 05/17/2019 mammogram, 05/17/2018 mammogram, mammogram, and 03/10/2016 mammogram - [facility]. There are scattered fibr oglandular elements in left breast. There is a possible asymmetry in the left breast posterior depth superior region seen on the mediolat eral oblique view only. This is not seen in additional views. There also is a possible asymmetry in the left breast middle depth superior region seen on the mediol ateral oblique view only. This is not seen in additional views. No other significant masses or calcifications are seen in the breast. IMPRESSION: INCOMPLETE: NEEDS ADDITIONAL IMAGING EVALUATION The possible asymmetry in the left breast posterior depth superior region seen on the mediolateral ob lique view only is indeterminate. The possible asymmetry in the left breast middle depth superior region seen on the mediolateral obliq ue view only is indeterminate. A targeted ultrasound is recommended and will immediately follow. This exam was interpreted at Station ID: [id number]. NOTE: For mammograms, a report in lay terms will be sent to the patient. Approximately 15% of breast malignancies will not be visualized mammographically. In the management of a palpable breast mass, a negative mammogram must not discourage biopsy of a clinically suspicious lesion. Electronically Signed By: Moy Jimenez M.D. slc/:05/29/2020 12:24:12 ACR BI-RADS Category 0: Incomplete 3340F PARENCHYMAL PATTERN: (A) - The breast(s) demonstrate(s) scattered fibroglandular densities. BI-RADS CATEGORY: (0) - 0 Ultrasound [id number] Immediate follow-up LATERALITY: (B)
== END 2020-05-29 10:24 | disposition home or self-care (01) ==
LOC: DI 10:23
PROVIDERS: ATTEND Internal Medicine Hematology & Oncology
DX: R92.8 Other abnormal and inconclusive findings on diagnostic imaging of breast (principal)

== ENCOUNTER 2020-07-31 07:48 | Outpatient (CLI) | payer MEDICARE ==
[2020-07-31 12:12] LABS: ESTIMATED AVERAGE GLUCOSE 177 mg/dL (70-100); HEMOGLOBIN A1c% 7.8 % (4.27-6.07)
== END 2020-07-31 07:49 | disposition home or self-care (01) ==
LOC: LAB 07:48
PROVIDERS: ATTEND Nurse Practitioner
DX: E10.65 Type 1 diabetes mellitus with hyperglycemia (principal)
CPT/HCPCS: 36415; 83036

== ENCOUNTER 2020-11-07 08:10 | Outpatient (CLI) | payer MEDICARE ==
[2020-11-07 08:45] LABS: CREATININE,URINE 73.9 mg/dL; MICROALBUM/CREATININE RATIO,UR 48.7 ug/mg (<30.0); MICROALBUMIN,URINE 3.6 mg/dL (0-300.0)
[2020-11-07 08:48] LABS: BUN - BLOOD UREA NITROGEN 20 mg/dL (6-20); CALCIUM 9.6 mg/dL (8.5-10.3); CARBON DIOXIDE - CO2 31 mmol/L (21-32); CHLORIDE 104 mmol/L (101-111); CHOL/HDL RATIO 2.2 (<4.4); CHOLESTEROL 175 mg/dL; GFR - MDRD 55 (>89); GLUCOSE 64 mg/dL (70-100); HDL CHOLESTEROL 79 mg/dL; LDL CHOLESTEROL,CALCULATED 88 mg/dL; LDL/HDL RATIO 1.1 (<4.4); POTASSIUM 3.9 mmol/L (3.5-5.0); SODIUM 141 mmol/L (135-145); TRIGLYCERIDES 40 mg/dL; VLDL CHOLESTEROL 8 mg/dL
[2020-11-07 10:55] LABS: ESTIMATED AVERAGE GLUCOSE 160 mg/dL (70-100); HEMOGLOBIN A1c% 7.2 % (4.27-6.07)
== END 2020-11-07 08:11 | disposition home or self-care (01) ==
LOC: LAB 08:10
PROVIDERS: ATTEND Nurse Practitioner
DX: E10.65 Type 1 diabetes mellitus with hyperglycemia (principal)
CPT/HCPCS: 36415; 80048; 80061; 82043; 82570; 83036; 83721

== ENCOUNTER 2021-07-22 10:53 | Outpatient (CLI) | payer MEDICARE ==
--- NOTE | 2021-07-23 15:09 | Mammography Report ---
BILATERAL DIGITAL SCREENING MAMMOGRAM 3D/2D: 07/22/2021 CLINICAL: Routine screening. Personal history of right breast cancer. Family history of breast cancer . Comparison is made to exams dated: 05/29/2020 ultrasound, 05/29/2020 mammogram, 05/13/2020 mammogram, 04/25 mammogram, 05/17/2018 mammogram, and 03/27/2017 mammogram - [facility]. The t issue of both breasts is heterogeneously dense. This may lower the sensitivity of mammography. There are benign post operative findings in the right breast. No significant masses, calcifications, or other findings are seen in either breast. There has been no significant interval change. IMPRESSION: BENIGN There is no mammographic evidence of malignancy. A 1 year screening mammogram is recommended. This exam was interpreted at Station ID: [id number]. NOTE: For mammograms, a report in lay terms will be sent to the patient. Approximately 15% of breast malignancies will not be visualized mammographically. In the management of a palpable breast mass, a negative mammogram must not discourage biopsy of a clinically suspicious lesion. Electronically Signed By: Augusto rivera/kina:07/22/2021 14:14:58 ACR BI-RADS Category 2: Benign Finding(s) 3342F PARENCHYMAL PATTERN: (D) - The breast(s) demonstrate(s) heterogeneously dense fibroglandular kelsi hamilton. BI-RADS CATEGORY: (2) - 2 RECOMMENDATION: (ANNUAL) - Recommend routine annual screening mammography. [id number] 1 year screening LATERALITY: (B)
== END 2021-07-22 10:54 | disposition home or self-care (01) ==
LOC: DI.N 10:53
PROVIDERS: ATTEND Internal Medicine Hematology & Oncology
DX: Z12.31 Encounter for screening mammogram for malignant neoplasm of breast (principal); Z80.3 Family history of malignant neoplasm of breast; Z85.3 Personal history of malignant neoplasm of breast

== ENCOUNTER 2021-10-04 15:07 | Outpatient (CLI) | payer MEDICARE ==
[2021-10-04 18:42] LABS: ESTIMATED AVERAGE GLUCOSE 203 mg/dL (70-100); HEMOGLOBIN A1c% 8.7 % (4.27-6.07)
== END 2021-10-04 15:08 | disposition home or self-care (01) ==
LOC: LAB 15:07
PROVIDERS: ATTEND Nurse Practitioner
DX: E10.65 Type 1 diabetes mellitus with hyperglycemia (principal)
CPT/HCPCS: 36415; 83036

== ENCOUNTER 2021-11-19 10:54 | Emergency (ER) | payer MEDICARE ==
[2021-11-19] MEDS ORDERED: HYDROmorphone 1 MG/ML CARPUJECT IVP STA (11:31)
[2021-11-19] MEDS ORDERED: PROPOFOL 200 MG/20 ML VIAL IVP STA (11:31)
[2021-11-19] MEDS ORDERED: SODIUM CHLORIDE 0.9% 1,000 ML IV STA (11:32)
--- NOTE | 2021-11-19 11:43 | ED Physician Documentation ---
History of Present Illness - Stated complaint Stated Complaint: LEFT WRIST INJ - Chief complaint Chief Complaint: Trauma Ext - Additonal information Additional information: 66-year-old female presents emergency department for evaluation of acute left wrist deformity and pain. She tripped and fell while playing pickle ball. She has a superficial abrasion on the distal ulnar side of the wrist. Patient is right-hand dominant. Review of Systems Constitutional: denies: Fever, Chills Eyes: reports: Reviewed and negative Cardiac: reports: Reviewed and negative Respiratory: reports: Reviewed and negative GI: reports: Reviewed and negative : reports: Reviewed and negative Skin: reports: Abrasion (s) Musculoskeletal: reports: Extremity pain, Joint pain Neurologic: reports: Reviewed and negative PD PAST MEDICAL HISTORY - Past Medical History Past Medical History: Yes Cardiovascular: None Respiratory: None Endocrine/Autoimmune: Type 2 diabetes GI: None : None Psych: None Musculoskeletal: None Derm: Rosacea - Past Surgical History General: 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, Hysterectomy - Present Medications Home Medications: Ambulatory Orders Medication Instructions Recorded Confirmed Aspirin [Aspir 81] 81 mg PO DAILY 04/30/13 03/10/21 Multivitamin [Multivitamins] 1 each PO DAILY 04/30/13 03/10/21 [place]-3 Fatty Acids [Fish Oil] 1,000 mg PO DAILY 04/30/13 03/10/21 Insulin Lispro [Humalog Kwikpen] 11 unit SQ TIDWM 02/23/16 03/10/21 Ibuprofen [Motrin] 400 mg PO Q8H PRN #12 tablet 10/09/17 03/10/21 Cholecalciferol (Vitamin D3) 1,000 unit PO BID 11/29/18 03/10/21 [Vitamin D3] Glucosamine Sulfate 500 mg PO BID 11/29/18 03/10/21 Rosuvastatin Calcium [Crestor] 20 mg PO DAILY 03/10/21 03/10/21 cephALEXin [Keflex] 500 mg PO Q6H #28 cap 11/19/21 oxyCODONE [Roxicodone] 5 mg PO TID PRN #20 tablet 11/19/21 - Allergies Allergies/Adverse Reactions: Allergies Allergy/AdvReac Type Severity Reaction Status Date / Time No Known Drug Allergies Allergy Verified 11/19/21 11:01 - Social History Does the pt smoke?: No Smoking Status: Never smoker PD ED PE NORMAL - General General: Alert and oriented X 3, No acute distress, Well developed/nourished - HEENT HEENT: Atraumatic, EOMI, Moist mucous membranes, Other (Mallampati of 2) - Neck Neck: Supple, no meningeal sign, No adenopathy, No JVD - Cardiac Cardiac: RRR, No murmur, No gallop - Respiratory Respiratory: No respiratory distress, Clear bilaterally - Abdomen Abdomen: Normal bowel sounds, Soft - Extremities Extremities: Other (superficial abrasion distal ulna. Deformity distal wrist. sensation preserved. difficulty movement secondary to pain. 2+ radial pulse). No: No deformity - Neuro Neuro: Alert and oriented X 3 Eye Opening: Spontaneous Motor: Obeys Commands Verbal: Oriented GCS Score: 15 Results - Vitals Vitals: Vital Signs - 24 hr 11/19/21 11/19/21 11/19/21 10:58 11:46 12:03 Temperature 36.9 C Heart Rate 80 75 67 Respiratory 16 11 L 16 Rate Blood Pressure 120/59 L 126/69 135/73 H O2 Saturation 100 95 97 11/19/21 11/19/21 12:15 12:21 Temperature Heart Rate 72 69 Respiratory 19 13 Rate Blood Pressure 119/72 125/72 O2 Saturation 97 97 Oxygen O2 Source Room air - Rads (name of study) Left wrist Radiology: Final report received (Impacted and dorsally displaced distal radial fracture. Possible small ulnar styloid fracture. Carpal rows aligned with the distal fracture fragment. Distal radial shaft points ventrally.), EMP read indepedently (Comminuted displaced distal left radial fracture) left wrist post reduction Radiology: Final report received (Improved alignment of the distal comminuted radial fracture) Procedures - Reduction Body part reduced: Left, Wrist Fracture or dislocation: Fracture dislocation Anesthesia: Other (procedural sedation) Reduction aftercare: NV intact, Xray confirms reduction, Alignment improved, Splint applied, Patient tolerated well - Procedural sedation Sedation prep: Informed consent, Time out completed (1211 pm), Last meal (0900), PE performed, ASA 3 - severe disease, IV O2 monitor, ET CO2 monitor, RT present Sedation Medications: propofol Mallampati classification: II Patient status during sedation: Unresponsive, Vitals remained stable, Maintained airway, Recovered uneventfully Sedation recovery: Recovered uneventfully, Back to baseline PD MEDICAL DECISION MAKING - ED course Complexity details: reviewed old records, reviewed results, re-evaluated patient, considered differential, d/w patient ED course: 58-year-old female presents emergency department for evaluation of acute left wrist pain and deformity after ground-level fall while playing pickle ball. She is right-hand dominant. She presents with obvious fracture and dislocation of the distal radius. She does have a superficial abrasion on the ulnar side of the wrist. This does not appear to be consistent with open fracture. Utilizing propofol for conscious sedation in the patient did have closed reduction of her fracture. We do have good postreduction success. Given the comminuted distal radial fracture with dislocation she May require operative repair. Will be advised to follow-up with Ortho soon as possible. Post splinting patient has preserved neurovascular function. Routine splint care discussed. Advised prompt follow-up with orthopedics. Limited prescription for oxycodone has been sent to the [facility] pharmacy in [place]. Departure - Departure Disposition: 01 Home, Self Care Clinical Impression: Distal radius fracture, left Qualifiers: Encounter type: initial encounter Fracture type: closed Fracture morphology: other fracture Qualified Code(s): S52.592A - Other fractures of lower end of left radius, initial encounter for closed fracture Condition: Stable Record reviewed to determine appropriate education?: Yes Instructions: ED Fx Upper Ext Follow-Up: Harvey Klein MD [Provider Admit Priv/Credential] - Prescriptions: cephALEXin [Keflex] 500 mg PO Q6H #28 cap oxyCODONE [Roxicodone] 5 mg PO TID PRN #20 tablet PRN Reason: Pain Comments: Rhonda unfortunately you sustained a distal comminuted displaced left radial fracture after your fall today. Keep your arm elevated as much as possible above the level of your heart especially when you sleep at night. This will help reduce pain and swelling Utilizing conscious sedation we did achieve moderate to good reduction of this fracture. You will need to be seen by an orthopedic doctor emergently, within the next week. On Monday please contact your primary care provider to request the emergent referral. I have given you the phone number and name of Dr. Klein who is our local orthopedic surgeon and is skilled in this type of evaluation and treatment. I sent a prescription for some oxycodone, pain management to the [facility] in [place]. In general use Tylenol 500 mg with food 2-3 times a day or ibuprofen 600 mg with food again 2-3 times a day for pain control. For severe pain use the oxycodone sparingly. You did sustain an abrasion of the lateral distal wrist. However this is a superficial abrasion and not communicating with the bones in any way. However because of this abrasion under a splint I am putting you on Keflex and antibiotic empirically. This has also been sent electronically to the [facility] in [place] Your splint cannot get wet. If it does please return to the ER for repeat evaluation. If you find that the splint is too tight, you have numbness or tingling in your fingers please return immediately to the ER for second evaluation.
[2021-11-19] MEDS: lidocaine 1% 20 ML MDV SUBQ ONE ×2 (11:44→12:27)
[2021-11-19] MEDS ORDERED: BACITRACIN ZINC OINT 1 PACKET TOP STA (11:46)
[2021-11-19] MEDS ORDERED: TETANUS/DIPHTHERIA/PERTUSSIS 0.5 ML SYRINGE IM ONE (12:24)
[2021-11-19] MEDS ORDERED: oxyCODONE 5 MG TABLET PO STA (12:28)
--- NOTE | 2021-11-19 13:09 | XRAY Report ---
PROCEDURE: Wrist 3 View LT INDICATIONS: deformity and pain after fall TECHNIQUE: 3 views of the wrist were acquired. COMPARISON: None FINDINGS: Impacted and dorsally displaced distal radius fracture. Possible small ulnar styloid fracture. The ca rpal row is aligned with the distal fracture fragment. The distal radial shaft points ventrally. Trau matic positive ulnar variance. Distal radioulnar dislocation. Surrounding soft tissue swelling. Correlate clinically for open injury. IMPRESSION: Displaced, angulated distal radius fracture as described above. Reviewed by: Sunday Vu MD on 11/19/2021 1:08 PM PDT Approved by: Sunday Vu MD on 11/19/2021 1:08 PM PDT Station ID: [id number]
--- NOTE | 2021-11-19 13:11 | XRAY Report ---
PROCEDURE: Wrist 2 View LT INDICATIONS: POST REDUX TECHNIQUE: 2 views of the wrist were acquired. COMPARISON: Same day radiograph FINDINGS: Improved anatomic alignment of distal radius fracture, with about half shaft width of persistent dors al displacement of the distal radius fracture fragment. Distal radial ulnar joint alignment and carpa l alignment have improved. There is a splint overlying the limb. IMPRESSION: Improved alignment of distal radius fracture. Reviewed by: Sunday Vu MD on 11/19/2021 1:09 PM PDT Approved by: Sunday Vu MD on 11/19/2021 1:09 PM PDT Station ID: [id number]
[2021-11-19 13:33] VITALS: BP 125/76
== END 2021-11-19 13:33 | disposition home or self-care (01) ==
LOC: ED 10:54
DX: S60.812A Abrasion of left wrist, initial encounter (principal); S52.502A Unspecified fracture of the lower end of left radius, initial encounter for closed fracture; W19.XXXA Unspecified fall, initial encounter; Y93.69 Activity, other involving other sports and athletics played as a team or group
CPT/HCPCS: 25605; 73100; 73110; 90471; 90715; 96374; 99152; 99153; 99282; 99285; A9270; J1170; 94770

== ENCOUNTER 2021-11-20 22:47 | Emergency (ER) | payer MEDICARE ==
[2021-11-20 23:11] VITALS: BP 151/80
--- NOTE | 2021-11-20 23:24 | ED Physician Documentation ---
PD HPI UPPER EXT INJURY - Stated complaint Stated Complaint: RE-ADJUST CAST - Chief complaint Chief Complaint: Ext Problem - Additonal information Additional information: Patient is 66-year-old female presenting to the emergency department requesting revision of her splint. Evaluated earlier today for pickleball injury to the left upper extremity. Reports pain and discomfort associated with her splint. Specifically requests that it be redone. Review of Systems Ten Systems: 10 systems reviewed and negative Constitutional: denies: Fever Eyes: denies: Loss of vision Ears: denies: Loss of hearing Nose: denies: Rhinorrhea / runny nose Throat: denies: Dental pain / toothache Cardiac: denies: Chest pain / pressure Respiratory: denies: Dyspnea PD PAST MEDICAL HISTORY - Past Medical History Past Medical History: Yes Cardiovascular: None Respiratory: None Endocrine/Autoimmune: Type 2 diabetes GI: None : None Psych: None Musculoskeletal: None Derm: Rosacea - Past Surgical History Past Surgical History: Yes General: Colonoscopy /NUMEROLOGIST: Tubal ligation, Hysterectomy - Present Medications Home Medications: Ambulatory Orders Medication Instructions Recorded Confirmed Aspirin [Aspir 81] 81 mg PO DAILY 04/30/13 11/20/21 Multivitamin [Multivitamins] 1 each PO DAILY 04/30/13 11/20/21 [place]-3 Fatty Acids [Fish Oil] 1,000 mg PO DAILY 04/30/13 11/20/21 Insulin Lispro [Humalog Kwikpen] 11 unit SQ TIDWM 02/23/16 11/20/21 Ibuprofen [Motrin] 400 mg PO Q8H PRN #12 tablet 10/09/17 11/20/21 Cholecalciferol (Vitamin D3) 1,000 unit PO BID 11/29/18 11/20/21 [Vitamin D3] Glucosamine Sulfate 500 mg PO BID 11/29/18 11/20/21 Rosuvastatin Calcium [Crestor] 20 mg PO DAILY 03/10/21 11/20/21 cephALEXin [Keflex] 500 mg PO Q6H #28 cap 11/19/21 11/20/21 oxyCODONE [Roxicodone] 5 mg PO TID PRN #20 tablet 11/19/21 11/20/21 - Allergies Allergies/Adverse Reactions: Allergies Allergy/AdvReac Type Severity Reaction Status Date / Time No Known Drug Allergies Allergy Verified 11/20/21 23:11 - Social History Does the pt smoke?: No Smoking Status: Never smoker Does the pt drink ETOH?: No Does the pt have substance abuse?: No - Immunizations Immunizations are current?: Yes - POLST Patient has POLST: No PD ED PE NORMAL - Vitals Vital signs reviewed: Yes - General General: Alert and oriented X 3 - HEENT HEENT: Atraumatic - Respiratory Respiratory: No respiratory distress - Extremities Extremities: Other (Posterior short arm splint noted over the left upper extremity. Good capillary refill to the fingers. Good sensation with no discoloration.) Results - Vitals Vitals: Vital Signs - 24 hr 11/20/21 23:00 Temperature 36.1 C L Heart Rate 78 Respiratory 16 Rate Blood Pressure 151/80 H O2 Saturation 98 Oxygen O2 Source Room air PD MEDICAL DECISION MAKING - ED course Complexity details: d/w patient ED course: Patient 76-year-old female presenting to the emergency department for revision of her splint. This was accomplished by nursing staff. On reevaluation she reported feeling significantly better. No indications neurovascular compromise. Will discharge at this time for continued follow-up with her outpatient team. Departure - Departure Disposition: 01 Home, Self Care Clinical Impression: Pain of upper extremity Comments: Thank you for allowing us to care for you today at [facility]. Please keep your follow-up appointment with orthopedics. If it anytime he have any new or worsening symptoms please do not hesitate to return.
== END 2021-11-20 23:23 | disposition home or self-care (01) ==
LOC: ED 22:47
DX: Z46.89 Encounter for fitting and adjustment of other specified devices (principal)
CPT/HCPCS: 99281; 99282

== ENCOUNTER 2021-11-22 08:00 | Outpatient (CLI) | payer MEDICARE ==
--- NOTE | 2021-11-22 16:37 | XRAY Report ---
PROCEDURE: Elbow 3 View LT INDICATIONS: ELBOW PX TECHNIQUE: 3 views of the elbow were acquired. COMPARISON: None FINDINGS: Bones: No fractures or dislocations. No suspicious bony lesions. Soft tissues: Minimal elbow joint effusion. No suspicious soft tissue calcifications. IMPRESSION: No visualized acute fracture or dislocation. However, occult injury cannot be excluded. Recommend chaim rt interval imaging follow-up in 7-10 days as clinically indicated for additional evaluation. Reviewed by: Josefa Silva MD on 11/22/2021 4:36 PM PDT Approved by: Josefa Silva MD on 11/22/2021 4:36 PM PDT Station ID: [id number]
== END 2021-11-22 23:59 | disposition home or self-care (01) ==
LOC: DI.WOS 08:00
PROVIDERS: ATTEND Orthopaedic Surgery
DX: M25.522 Pain in left elbow (principal)

== ENCOUNTER 2021-11-24 10:24 | Day surgery (SDC) | payer MEDICARE ==
[~2021-11-24 10:24] MED LIST: ACETAMINOPHEN 500 MG TABLET PO ONE; CEFAZOLIN SODIUM IN 0.9 % NACL 2 GM/50 ML BAG IV ONE; CELECOXIB 100 MG CAPSULE PO ONE
[2021-11-24] MEDS ORDERED: LACTATED RINGERS 1,000 ML IV ONE (10:48)
--- NOTE | 2021-11-24 11:17 | ANESTHESIA ---
Pre-Anesthesia VS, & Labs - Diagnosis displaced L distal radius fx - Procedure closed reduction pinning L distal radius Vital Signs: Temp Pulse Resp BP Pulse Ox 36.2 C L 72 17 147/76 H 95 11/24/21 10:48 11/24/21 10:48 11/24/21 10:48 11/24/21 10:48 11/24/21 10:48 Height: 5 ft 9 in Weight (kg): 84.4 kg Body Mass Index: 27.4 BMI Classification: Overweight - NPO >8 hours - Is Patient ?: No - Lab Results Current Lab Results: Laboratory Tests 11/24/21 10:49: POC Whole Bld Glucose 165 H Lab results reviewed: Yes Home Medications and Allergies Aspirin [Aspir 81] 81 mg PO DAILY 04/30/13 Multivitamin [Multivitamins] 1 each PO DAILY 04/30/13 [place]-3 Fatty Acids [Fish Oil] 1,000 mg PO DAILY 04/30/13 Insulin Lispro [Humalog Kwikpen] 11 unit SQ TIDWM 02/23/16 Cholecalciferol (Vitamin D3) [Vitamin D3] 1,000 unit PO BID 11/29/18 Glucosamine Sulfate 500 mg PO BID 11/29/18 Rosuvastatin Calcium [Crestor] 20 mg PO DAILY 03/10/21 Allergies/Adverse Reactions: Allergies Allergy/AdvReac Type Severity Reaction Status Date / Time No Known Drug Allergies Allergy Verified 11/24/21 09:09 Anes History & Medical History - Anesthetic History Anesthesia Complications: reports: No previous complications Family history of Anesthesia Complications: Denies Family history of Malignant Hyperthermia: Denies - Medical History Cardiovascular: reports: None Pulmonary: reports: None Gastrointestinal: reports: None Urinary: reports: None Musculoskeletal: reports: None Endocrine/Autoimmune: reports: Type 2 diabetes Skin: reports: Rosacea Smoking Status: Never smoker History of Cancer?: No - Surgical History General: reports: Colonoscopy Gynecologic: reports: Tubal ligation, Hysterectomy Exam General: Alert, Oriented x3, Cooperative Dental: WNL Mouth Openin Fingerbreadth Neck Mobility: Normal Mallampati classification: II Thyromental Distance: 4-6 cm Respiratory: Lungs clear, Normal breath sounds, No respiratory distress Cardiovascular: Regular rate Neurological: Normal speech Mental/Cognitive Status: Alert/Oriented X3, Normal for patient Cognitive Status: Within normal limits Plan Anesthesia Type: General Consent for Procedure(s) Verified and Reviewed: Yes Code Status: Attempt Resuscitation ASA classification: 2-Mild systemic disease Is this case an emergency?: No
[2021-11-24] MEDS ORDERED: ATROPINE ABBOJECT 1 MG/10 ML SYRINGE IVP PRN (11:18)
[2021-11-24] MEDS ORDERED: ONDANSETRON 4 MG/2 ML VIAL IVP PRN (11:18)
[2021-11-24] MEDS ORDERED: MORPHINE 2 MG/ML CARPUJECT IVP PRN (11:18)
[2021-11-24] MEDS ORDERED: ePHEDrine 50 MG/ML VIAL IVP PRN (11:18)
[2021-11-24] MEDS ORDERED: NALOXONE 0.4 MG/ML VIAL IVP PRN (11:18)
[2021-11-24] MEDS ORDERED: METOCLOPRAMIDE 10 MG/2 ML VIAL IVP PRN (11:18)
[2021-11-24] MEDS ORDERED: fentaNYL 100 MCG/2 ML VIAL IVP PRN (11:18)
[2021-11-24] MEDS ORDERED: fentaNYL 100 MCG/2 ML VIAL ONE ×2 (11:29→13:42)
[2021-11-24] MEDS ORDERED: MIDAZOLAM 2 MG/2 ML VIAL ONE (11:29)
[2021-11-24] MEDS ORDERED: LIDOCAINE-MPF 2% 5 ML VIAL ONE (11:30)
[2021-11-24] MEDS ORDERED: PROPOFOL 200 MG/20 ML VIAL IVP ONE (11:30)
[2021-11-24] MEDS ORDERED: BUPIVACAINE 0.5% PF 30 ML VIAL ONE (11:34)
[2021-11-24] MEDS ORDERED: LIDOCAINE 2%-EPI 1:100000 20 ML MDV ONE ×2 (11:34→11:36)
[2021-11-24] MEDS ORDERED: BUPIVACAINE 0.5% PF 30 ML VIAL SUBQ ONE ×2 (11:58)
[2021-11-24] MEDS ORDERED: LIDOCAINE 1%-EPI 1:100000 20 ML MDV SUBQ ONE ×2 (11:58)
[2021-11-24] MEDS ORDERED: LACTATED RINGERS 1,000 ML IV SCH (12:00)
[2021-11-24] MEDS ORDERED: ONDANSETRON 4 MG/2 ML VIAL ONE (12:12)
--- NOTE | 2021-11-24 12:36 | OPERATIVE REPORT ---
Operative Report - General Procedure Date: 11/24/21 Planned Procedure: Closed reduction left distal radius, percutaneous pinning Pre-Op Diagnosis: Displaced left distal radius fracture Procedure Performed: Closed reduction left distal radius fracture, percutaneous K wire fixation with 3 K wires, 0.062 inches Post Op Diagnosis: Same as preoperative diagnosis - Procedure Note Primary Surgeon: Harvey Klein MD Secondary Surgeon: Jordyn SCHWARZ Anesthesia Technique: General LMA Estimated Blood Loss (mL): 1 Indications: This is a 66-year-old woman with a fall from standing height, isolated injury to left wrist involving the distal forearm. She had an abrasion over the ulnar aspect of the left wrist. She was seen in the emergency room where she was placed in a sugar-tong splint. She had tenderness to the left distal radius, limited motion left wrist, no neurovascular deficit, superficial abrasion over the ulna side of left wrist. Her x-ray showed osteopenia, displaced fracture of the left distal radius, mostly extra-articular with shortening and angulation.S he has a history of diabetes. Informed consent was obtained. Findings: She had a relatively transverse fracture to the left distal radius, extra- articular and unstable. Complications: None - Other Other Information/Narrative: The patient was brought to the operating room and was placed in a supine posit ion with the Left arm on a arm extension table. The Left upper extremity was prepped and draped in a sterile manner in the usual fashion. The C-arm image intensifier was utilized and covered with a sterile drape. A timeout procedure was performed by the entire operating room team and all were in agreement. Finger traps were applied to all 5 fingers and a traction bow as well. Longitudinal traction was applied, direct manipulation of the fracture site over a sterile bump. The C-arm image intensifier showed good alignment and a percutaneous pinning was performed with 0.062 K wires. The bare area of the radial styloid was engaged and pin was inserted from the styloid across the fracture to achieve bicortical fixation. An additional K wire from the radial styloid was also inserted to provide 2 bicortical K wires from the radial styloid. 1 additional K wires were inserted from the ulnar corner of the distal radius distally and this was then driven from distal to proximal and ulnar to radial. Biplanar and oblique imaging was obtained and there was good alignment of the fixation and fracture. The fracture was stable when traction was released. The K wires were cut external to skin and covered with sterile balls. A well-padded short arm fiberglass splint was applied with gauze padding around the K wires. He tolerated the procedure well. No tourniquet was utilized.Ancef 2 g intravenously was utilized. A physician assistant librarian was medically necessary to help with prepping and draping, positioning, protection of vital structures, assistance during the procedure including Fingertrap traction, wound closure, dressing and/or splinting.
[2021-11-24] MEDS ORDERED: oxyCODONE 5 MG TABLET PO PRN (12:43)
[2021-11-24] MEDS ORDERED: LACTATED RINGERS 500 ML IV ONE (12:44)
[2021-11-24] MEDS ORDERED: ONDANSETRON 4 MG/2 ML VIAL IVP SCH (13:00)
[2021-11-24] MEDS: HYDROmorphone 0.5 MG/0.5 ML SYRINGE IVP PRN ×2 (13:20→13:28)
[2021-11-24] MEDS ORDERED: HYDROmorphone 0.5 MG/0.5 ML SYRINGE ONE (13:30)
--- NOTE | 2021-11-24 13:41 | XRAY Report ---
PROCEDURE: OR C-Arm Procedure INDICATIONS: Percutaneous Pinning Left Distal Radius TECHNIQUE: 2 intraoperative fluoroscopic images of left wrist were obtained. COMPARISON: Wrist radiograph dated 11/19/2021. FINDINGS: Intraoperative fluoroscopic images shows internal thinning of patient's known distal radial shaft fra cture. Wrist alignment is anatomic. Total fluoroscopy time is 13 seconds. IMPRESSION: Fluoroscopy guidance was provided intraoperatively for percutaneous pinning of distal radius. Reviewed by: Herbert Laguerre MD on 11/24/2021 12:39 PM HONG Approved by: Herbert Laguerre MD on 11/24/2021 12:39 PM HONG Station ID: [id number]
[2021-11-24 14:09] VITALS: BP 134/70
[2021-11-24] MEDS ORDERED: oxyCODONE 5 MG TABLET ONE (14:22)
--- NOTE | 2021-11-24 14:53 | ANESTHESIA POST OP EVALUATION ---
Anesthesia Post Eval - Post Anesthesia Eval Vitals: Last Vital Signs Temp 36.0 C L 11/24/21 13:50 Pulse 58 L 11/24/21 14:06 Resp 16 11/24/21 14:06 BP 134/70 H 11/24/21 14:06 Pulse Ox 100 11/24/21 14:06 CV Function Including HR & BP: Stable Pain Control: Satisfactory Nausea & Vomiting: Negative Mental Status: Baseline Respiratory Status: Airway Patent Hydration Status: Satisfactory Anesthesia Complications: None
== END 2021-11-24 10:25 | disposition home or self-care (01) ==
LOC: SDS 10:24
PROVIDERS: ATTEND Orthopaedic Surgery
DX: S52.532A Colles' fracture of left radius, initial encounter for closed fracture (principal); W19.XXXA Unspecified fall, initial encounter; E11.9 Type 2 diabetes mellitus without complications; Z79.4 Long term (current) use of insulin
CPT/HCPCS: 25606; A9270; C1713; J0690; J1170; J7120

== ENCOUNTER 2022-01-06 08:37 | Outpatient (CLI) | payer MEDICARE ==
[2022-01-06 09:18] LABS: BUN - BLOOD UREA NITROGEN 24 mg/dL (6-20); CALCIUM 10.3 mg/dL (8.5-10.3); CARBON DIOXIDE - CO2 32 mmol/L (21-32); CHLORIDE 102 mmol/L (101-111); CHOL/HDL RATIO 2.8 (<4.4); CHOLESTEROL 175 mg/dL; CREATININE 0.9 mg/dL (0.4-1.0); GFR - MDRD 62 (>89); GLUCOSE 212 mg/dL (70-100); HDL CHOLESTEROL 62 mg/dL; LDL CHOLESTEROL,CALCULATED 99 mg/dL; LDL/HDL RATIO 1.6 (<4.4); POTASSIUM 4.5 mmol/L (3.5-5.0); SODIUM 140 mmol/L (135-145); TRIGLYCERIDES 69 mg/dL; VLDL CHOLESTEROL 14 mg/dL
[2022-01-06 09:31] LABS: CREATININE,URINE 35.7 mg/dL; MICROALBUM/CREATININE RATIO,UR 5.6 ug/mg (<30.0); MICROALBUMIN,URINE 0.2 mg/dL (0-300.0)
[2022-01-06 16:18] LABS: ESTIMATED AVERAGE GLUCOSE 180 mg/dL (70-100); HEMOGLOBIN A1c% 7.9 % (4.27-6.07)
== END 2022-01-06 08:38 | disposition home or self-care (01) ==
LOC: LAB 08:37
PROVIDERS: ATTEND Nurse Practitioner
DX: E10.65 Type 1 diabetes mellitus with hyperglycemia (principal); E78.2 Mixed hyperlipidemia
CPT/HCPCS: 36415; 80048; 80061; 82043; 82570; 83036; 83721

== ENCOUNTER 2022-01-10 08:00 | Outpatient (CLI) | payer MEDICARE ==
--- NOTE | 2022-01-10 11:30 | XRAY Report ---
PROCEDURE: Wrist 3 View LT INDICATIONS: WRIST FX TECHNIQUE: 3 views of the wrist were acquired. COMPARISON: Left wrist radiographs 11/19/2021 FINDINGS: Bones: Comminuted distal radial fracture is redemonstrated with mild progressive healing changes. Ali gnment appears mildly prominent improved when compared to the radiographs from 11/19/2021. Tiny ulnar styloid tip fracture redemonstrated. Background degenerative changes are seen. Soft tissues: Soft tissue edema is seen surrounding the wrist. IMPRESSION: Progressive healing changes are seen at the distal radial fracture with mildly improved alignment. Ul mohini styloid tip fracture appears unchanged. Reviewed by: Augusto Guido MD on 01/10/2022 11:29 AM PDT Approved by: Augusto Guido MD on 01/10/2022 11:29 AM PDT Station ID: [id number]
== END 2022-01-10 23:59 | disposition home or self-care (01) ==
LOC: DI.WOS 08:00
PROVIDERS: ATTEND Orthopaedic Surgery
DX: S52.532D Colles' fracture of left radius, subsequent encounter for closed fracture with routine healing (principal); S52.612D Displaced fracture of left ulna styloid process, subsequent encounter for closed fracture with routine healing

== ENCOUNTER 2022-02-08 08:00 | Outpatient (CLI) | payer MEDICARE ==
--- NOTE | 2022-02-08 15:36 | XRAY Report ---
PROCEDURE: Wrist 3 View LT INDICATIONS: LEFT WRIST FX TECHNIQUE: 3 views of the wrist were acquired. COMPARISON: 01/10/2022 and 11/19/2021. FINDINGS: Bones: Distal radius fracture less conspicuous compared to 01/10/2022 compatible with progression of healing. Partial fracture of the tip of the ulnar styloid process is stable. Soft tissues: No suspicious soft tissue calcifications. IMPRESSION: Healing distal radius fracture. Reviewed by: Sheela Benjamin MD, PhD on 02/08/2022 3:34 PM PDT Approved by: Sheela Benjamin MD, PhD on 02/08/2022 3:34 PM PDT Station ID: [id number]
== END 2022-02-08 23:59 | disposition home or self-care (01) ==
LOC: DI.WOS 08:00
PROVIDERS: ATTEND Orthopaedic Surgery
DX: S52.532D Colles' fracture of left radius, subsequent encounter for closed fracture with routine healing (principal)

== ENCOUNTER 2022-05-31 14:40 | Outpatient (CLI) | payer MEDICARE ==
--- NOTE | 2022-05-31 18:40 | XRAY Report ---
PROCEDURE: Knee 3 View RT INDICATIONS: PAIN IN RIGHT KNEE TECHNIQUE: 3 views of the right knee(s) were acquired. COMPARISON: None. FINDINGS: Bones: No fractures or dislocations. No suspicious bony lesions. Joint spaces preserved. The stabi lity calcifications project over the menisci. Soft tissues: Small joint effusion. No suspicious soft tissue calcifications. IMPRESSION: Mild chondrocalcinosis and small joint effusion Reviewed by: Lorenzo Garnica MD on 05/31/2022 5:39 PM [place] Approved by: Lorenzo Garnica MD on 05/31/2022 5:39 PM AKST Station ID: [id number]
== END 2022-05-31 14:41 | disposition home or self-care (01) ==
LOC: DI 14:40
PROVIDERS: ATTEND Physician Assistant
DX: M11.261 Other chondrocalcinosis, right knee (principal); M25.461 Effusion, right knee

== ENCOUNTER 2022-06-23 09:13 | Outpatient (CLI) | payer MEDICARE ==
[2022-06-23 09:40] LABS: ALBUMIN/GLOBULIN RATIO 1.3 (1.0-2.2); BILIRUBIN,TOTAL 0.9 mg/dL (0.2-1.0); CALCIUM 10.4 mg/dL (8.5-10.3); POTASSIUM 4.8 mmol/L (3.5-5.0); TOTAL PROTEIN 7.2 g/dL (6.7-8.2)
[2022-06-23 10:12] LABS: ESTIMATED AVERAGE GLUCOSE 186 mg/dL (70-100); HEMOGLOBIN A1c% 8.1 % (4.27-6.07)
== END 2022-06-23 09:14 | disposition home or self-care (01) ==
LOC: LAB 09:13
PROVIDERS: ATTEND Nurse Practitioner
DX: E13.22 Other specified diabetes mellitus with diabetic chronic kidney disease (principal)
CPT/HCPCS: 36415; 80053; 83036

== ENCOUNTER 2022-06-27 15:25 | Outpatient (CLI) | payer MEDICARE ==
--- NOTE | 2022-06-27 16:56 | Ultrasound Report ---
PROCEDURE: Duplex Ext Veins Right INDICATIONS: RIGHT FOOT SWELLING TECHNIQUE: Real-time imaging, as well as color and pulse Doppler interrogation, were performed of the lower extr emity deep veins from the inguinal ligament to the popliteal fossa. COMPARISON: None. FINDINGS: The deep veins are normally compressible, and free of intraluminal thrombus. Color and pu lse Doppler demonstrate normal phasic intraluminal flow. There is normal augmentation response to di stal compression maneuver. IMPRESSION: Negative right duplex lower extremity venous ultrasound for DVT. Reviewed by: Sreekanth Chapman MD on 06/27/2022 4:54 PM PST Approved by: Sreekanth Chapman MD on 06/27/2022 4:54 PM PST Station ID: [id number]
== END 2022-06-27 15:26 | disposition home or self-care (01) ==
LOC: DI 15:25
PROVIDERS: ATTEND Physician Assistant
DX: R22.41 Localized swelling, mass and lump, right lower limb (principal)

== ENCOUNTER 2022-07-04 13:53 | Outpatient (CLI) | payer MEDICARE ==
--- NOTE | 2022-07-04 21:22 | XRAY Report ---
PROCEDURE: Foot 3 View RT INDICATIONS: FOOT PAIN RT TECHNIQUE: 3 views of the foot were acquired. COMPARISON: None FINDINGS: Bones: There is a subacute appearing fracture with callus formation of the mid aspect of the third me tatarsal. There is minimal displacement. No suspicious bony lesions. Soft tissues: No tibiotalar joint effusion. Achilles tendon appears normal. IMPRESSION: Minimally displaced healing mid third metatarsal fracture. Reviewed by: Josefa Silva MD on 07/04/2022 9:21 PM PDT Approved by: Josefa Silva MD on 07/04/2022 9:21 PM PDT Station ID: [id number]
== END 2022-07-04 13:54 | disposition home or self-care (01) ==
LOC: DI 13:53
PROVIDERS: ATTEND Physician Assistant Medical
DX: S92.331D Displaced fracture of third metatarsal bone, right foot, subsequent encounter for fracture with routine healing (principal)

== ENCOUNTER 2022-07-15 14:25 | Outpatient (CLI) | payer MEDICARE ==
--- NOTE | 2022-07-18 13:45 | Mammography Report ---
BILATERAL DIGITAL SCREENING MAMMOGRAM 3D/2D: 07/15/2022 CLINICAL: Routine screening. Personal history of right breast cancer. Comparison is made to exams dated: 07/22/2021 mammogram, 05/29/2020 mammogram, 05/13/2020 mammogram, 04/25 mammogram, 05/17/2018 mammogram, and 03/27/2017 mammogram - [facility]. Both breasts are heterogeneously dense, which may obscure small masses (category c / 51-75% glandular tissue). There are benign vascular calcifications in the left breast. There also are benign post operative fi ndings in the right breast. No significant masses, calcifications, or other findings are seen in either breast. There has been no significant interval change. IMPRESSION: BENIGN There is no mammographic evidence of malignancy. A 1 year screening mammogram is recommended. This exam was interpreted at Station ID: [id number]. NOTE: For mammograms, a report in lay terms will be sent to the patient. Approximately 15% of breast malignancies will not be visualized mammographically. In the management of a palpable breast mass, a negative mammogram must not discourage biopsy of a clinically suspicious lesion. Electronically Signed By: Moy Jimenez M.D. [facility] [place]07/15/2022 16:15:04 letter sent: No_Letter ACR BI-RADS Category 2: Benign Finding(s) 3342F PARENCHYMAL PATTERN: (D) - The breast(s) demonstrate(s) heterogeneously dense fibroglandular kelsi hamilton. BI-RADS CATEGORY: (2) - 2 Mammogram [id number] 1 year screening LATERALITY: (B)
== END 2022-07-15 14:26 | disposition home or self-care (01) ==
LOC: DI 14:25
PROVIDERS: ATTEND Internal Medicine Hematology & Oncology
DX: Z12.31 Encounter for screening mammogram for malignant neoplasm of breast (principal); Z85.3 Personal history of malignant neoplasm of breast

== ENCOUNTER 2022-10-04 10:30 | Outpatient (CLI) | payer MEDICARE ==
--- NOTE | 2022-10-04 16:53 | XRAY Report ---
PROCEDURE: Foot 2 View LT INDICATIONS: FOOT PAIN LEFT TECHNIQUE: 3 views of the foot were acquired. COMPARISON: None. FINDINGS: Bones: No fractures or dislocations. No suspicious bony lesions. Periarticular osteophyte formati on at the first metatarsophalangeal joint. Soft tissues: No suspicious soft tissue calcifications or masses. IMPRESSION: Osteoarthritis. No acute fracture. No osseous lesion. If symptoms and/or clinical suspicion for patho logy continue, further assessment with repeat plain films, or advanced imaging (e.g., CT, MRI, or bon e scan) is recommended for further assessment. Reviewed by: Maury Nicole MD on 10/04/2022 4:51 PM PDT Approved by: Maury Nicole MD on 10/04/2022 4:51 PM PDT Station ID: [id number]
== END 2022-10-04 10:45 | disposition home or self-care (01) ==
LOC: DI.N 10:30
PROVIDERS: ATTEND Specialist
DX: M19.072 Primary osteoarthritis, left ankle and foot (principal)

== ENCOUNTER 2022-10-14 13:10 | Outpatient (CLI) | payer MEDICARE ==
[2022-10-14 13:38] LABS: BILIRUBIN,DIRECT 0.1 mg/dL (0.1-0.5); BILIRUBIN,TOTAL 0.4 mg/dL (0.2-1.0); CREATININE 1.2 mg/dL (0.4-1.0); TOTAL PROTEIN 7.3 g/dL (6.7-8.2)
== END 2022-10-14 13:11 | disposition home or self-care (01) ==
LOC: LAB 13:10
PROVIDERS: ATTEND Physician Assistant Medical
DX: B35.1 Tinea unguium (principal)
CPT/HCPCS: 36415; 80076; 82565; 84520

== ENCOUNTER 2022-12-28 11:14 | Outpatient (CLI) | payer MEDICARE ==
--- NOTE | 2022-12-28 17:48 | XRAY Report ---
PROCEDURE: Ankle 3 View LT INDICATIONS: LEFT ANKLE PAIN TECHNIQUE: 3 views of the ankle were acquired. COMPARISON: None. FINDINGS: Bones: No fractures or dislocations. Ankle mortise is normally aligned. No suspicious bony lesions . Soft tissues: No tibiotalar joint effusion. Achilles tendon appears normal. IMPRESSION: No acute bony abnormality. Reviewed by: Lorenzo Garnica MD on 12/28/2022 4:46 PM AKCYNDIE Approved by: Lorenzo Garnica MD on 12/28/2022 4:46 PM AKDT Station ID: [id number]
== END 2022-12-28 11:15 | disposition home or self-care (01) ==
LOC: DI 11:14
PROVIDERS: ATTEND Podiatrist
DX: M25.572 Pain in left ankle and joints of left foot (principal)

== ENCOUNTER 2023-03-09 13:36 | Outpatient (CLI) | payer MEDICARE ==
[2023-03-09 14:05] LABS: ALBUMIN 4.1 g/dL (3.2-5.5); BUN - BLOOD UREA NITROGEN 22 mg/dL (6-20); CREATININE 1.1 mg/dL (0.6-1.3); GFR - MDRD 49 (>89)
[2023-03-09 14:19] LABS: BILIRUBIN,DIRECT < 0.10 mg/dL (0.03-0.18)
[2023-03-09 14:20] LABS: ALKALINE PHOSPHATASE 58 IU/L (42-121); ALT ALANINE AMINOTRANSFERASE 26 IU/L (10-60); AST ASPARTATE AMINOTRANSFERASE 29 IU/L (10-42); BILIRUBIN,TOTAL 0.3 mg/dL (0.2-1.0); TOTAL PROTEIN 6.9 g/dL (6.4-8.9)
== END 2023-03-09 13:37 | disposition home or self-care (01) ==
LOC: LAB 13:36
PROVIDERS: ATTEND Physician Assistant Medical
DX: B35.1 Tinea unguium (principal)
CPT/HCPCS: 36415; 80076; 82565; 84520

== ENCOUNTER 2023-04-10 14:28 | Outpatient (CLI) | payer MEDICARE ==
[2023-04-10 18:10] LABS: ESTIMATED AVERAGE GLUCOSE 166 mg/dL (70-100); HEMOGLOBIN A1c% 7.4 % (4.27-6.07)
== END 2023-04-10 14:29 | disposition home or self-care (01) ==
LOC: LAB 14:28
PROVIDERS: ATTEND Nurse Practitioner
DX: E13.65 Other specified diabetes mellitus with hyperglycemia (principal)
CPT/HCPCS: 36415; 83036

== ENCOUNTER 2023-05-13 11:16 | Outpatient (CLI) | payer MEDICARE ==
[2023-05-13 11:55] LABS: ALBUMIN 4.1 g/dL (3.2-5.5); BILIRUBIN,DIRECT 0.11 mg/dL (0.03-0.18); BILIRUBIN,TOTAL 0.6 mg/dL (0.2-1.0); TOTAL PROTEIN 6.7 g/dL (6.4-8.9)
== END 2023-05-13 11:17 | disposition home or self-care (01) ==
LOC: LAB 11:16
PROVIDERS: ATTEND Physician Assistant Medical
DX: B35.1 Tinea unguium (principal)
CPT/HCPCS: 36415; 80076; 82565; 84520

== ENCOUNTER 2023-07-05 12:56 | Outpatient (CLI) | payer MEDICARE ==
[2023-07-05 13:24] LABS: ALBUMIN 4.1 g/dL (3.2-5.5); BILIRUBIN,DIRECT 0.1 mg/dL (0.03-0.18); BILIRUBIN,TOTAL 0.4 mg/dL (0.2-1.0); CREATININE 0.9 mg/dL (0.6-1.3); TOTAL PROTEIN 6.8 g/dL (6.4-8.9)
== END 2023-07-05 12:57 | disposition home or self-care (01) ==
LOC: LAB 12:56
PROVIDERS: ATTEND Physician Assistant Medical
DX: B35.1 Tinea unguium (principal)
CPT/HCPCS: 36415; 80076; 82565; 84520

== ENCOUNTER 2023-07-09 08:33 | Outpatient (CLI) | payer MEDICARE ==
[2023-07-09 09:03] LABS: CHOL/HDL RATIO 3.3 (<4.4); CHOLESTEROL 242 mg/dL; HDL CHOLESTEROL 74 mg/dL; LDL CHOLESTEROL,CALCULATED 149 mg/dL; TRIGLYCERIDES 93 mg/dL (48-352); VLDL CHOLESTEROL 19 mg/dL
[2023-07-09 15:01] LABS: ESTIMATED AVERAGE GLUCOSE 151 mg/dL (70-100); HEMOGLOBIN A1c% 6.9 % (4.27-6.07)
== END 2023-07-09 08:34 | disposition home or self-care (01) ==
LOC: LAB 08:33
PROVIDERS: ATTEND Nurse Practitioner
DX: E13.8 Other specified diabetes mellitus with unspecified complications (principal); E78.2 Mixed hyperlipidemia
CPT/HCPCS: 36415; 80061; 83036; 83721

== ENCOUNTER 2023-07-13 15:44 | Outpatient (CLI) | payer MEDICARE ==
--- NOTE | 2023-07-13 16:37 | XRAY Report ---
PROCEDURE: Ankle 3+V LT INDICATIONS: LEFT ANKLE SPRAIN TECHNIQUE: 3 views of the ankle were acquired. COMPARISON: Left ankle radiographs 12/28/2022. FINDINGS: Bones: No fractures or dislocations. Ankle mortise is normally aligned. No suspicious bony lesions . Small plantar calcaneal spur. Soft tissues: No tibiotalar joint effusion. Achilles tendon appears normal. IMPRESSION: No acute bony abnormality. Reviewed by: Moy Jimenez MD on 07/13/2023 4:35 PM PDT Approved by: Moy Jimenez MD on 07/13/2023 4:35 PM PDT Station ID: [id number]
== END 2023-07-13 15:45 | disposition home or self-care (01) ==
LOC: DI 15:44
PROVIDERS: ATTEND Nurse Practitioner
DX: S93.402A Sprain of unspecified ligament of left ankle, initial encounter (principal)

== ENCOUNTER 2023-08-23 12:49 | Outpatient (CLI) | payer MEDICARE ==
[2023-08-23 13:17] LABS: ALBUMIN 4.1 g/dL (3.2-5.5); ALKALINE PHOSPHATASE 59 IU/L (42-121); ALT ALANINE AMINOTRANSFERASE 22 IU/L (10-60); AST ASPARTATE AMINOTRANSFERASE 24 IU/L (10-42); BILIRUBIN,DIRECT < 0.10 mg/dL (0.03-0.18); BILIRUBIN,TOTAL 0.4 mg/dL (0.2-1.0); BUN - BLOOD UREA NITROGEN 24 mg/dL (6-20); GFR - MDRD 55 (>89)
== END 2023-08-23 12:50 | disposition home or self-care (01) ==
LOC: LAB 12:49
PROVIDERS: ATTEND Physician Assistant Medical
DX: B35.1 Tinea unguium (principal)
CPT/HCPCS: 36415; 80076; 82565; 84520

== ENCOUNTER 2023-08-28 13:04 | Outpatient (CLI) | payer MEDICARE ==
--- NOTE | 2023-08-29 08:43 | Mammography Report ---
BILATERAL DIGITAL SCREENING MAMMOGRAM 3D/2D: 08/28/2023 CLINICAL: Routine screening. Comparison is made to exams dated: 07/15/2022 mammogram, 07/22/2021 mammogram, 05/29/2020 mammogram, 04/25 mammogram, 05/17/2019 mammogram, and 05/17/2018 mammogram - [facility]. Both breasts are heterogeneously dense, which may obscure small masses (category c / 51-75% glandular tissue). There is a benign calcification in the right breast. There also are benign post operative findings i n the right breast. No significant masses, calcifications, or other findings are seen in either breast. There has been no significant interval change. IMPRESSION: BENIGN There is no mammographic evidence of malignancy. A 1 year screening mammogram is recommended. This exam was interpreted at Station ID: [id number]. NOTE: For mammograms, a report in lay terms will be sent to the patient. Approximately 15% of breast malignancies will not be visualized mammographically. In the management of a palpable breast mass, a negative mammogram must not discourage biopsy of a clinically suspicious lesion. Electronically Signed By: Tawnya maria/kina:08/28/2023 14:57:39 letter sent: No_Letter ACR BI-RADS Category 2: Benign Finding(s) 3342F PARENCHYMAL PATTERN: (D) - The breast(s) demonstrate(s) heterogeneously dense fibroglandular kelsi hamilton. BI-RADS CATEGORY: (2) - 2 RECOMMENDATION: (ANNUAL) - Recommend routine annual screening mammography. [id number] 1 year screening LATERALITY: (B)
== END 2023-08-28 13:05 | disposition home or self-care (01) ==
LOC: DI 13:04
PROVIDERS: ATTEND Internal Medicine Hematology & Oncology
DX: Z12.31 Encounter for screening mammogram for malignant neoplasm of breast (principal); R92.333 Mammographic heterogeneous density, bilateral breasts

== ENCOUNTER 2023-10-07 11:47 | Outpatient (CLI) | payer MEDICARE | END 2023-10-07 11:48 | disposition home or self-care (01) | LOC: LAB 11:47 | PROVIDERS: ATTEND Nurse Practitioner | DX: E10.65 Type 1 diabetes mellitus with hyperglycemia (principal) ==

== ENCOUNTER 2023-10-07 11:52 | Outpatient (CLI) | payer MEDICARE ==
[2023-10-07 12:44] LABS: ALBUMIN 4.1 g/dL (3.2-5.5); BILIRUBIN,DIRECT 0.11 mg/dL (0.03-0.18); BILIRUBIN,TOTAL 0.7 mg/dL (0.2-1.0); CREATININE 1.1 mg/dL (0.6-1.3); TOTAL PROTEIN 6.8 g/dL (6.4-8.9)
[2023-10-07 20:44] LABS: ESTIMATED AVERAGE GLUCOSE 186 mg/dL (70-100); HEMOGLOBIN A1c% 8.1 % (4.27-6.07)
== END 2023-10-07 11:53 | disposition home or self-care (01) ==
LOC: LAB 11:52
PROVIDERS: ATTEND Physician Assistant Medical
DX: B35.1 Tinea unguium (principal); E10.65 Type 1 diabetes mellitus with hyperglycemia
CPT/HCPCS: 36415; 80076; 82565; 83036; 84520

== ENCOUNTER 2023-11-21 12:37 | Outpatient (CLI) | payer MEDICARE ==
[2023-11-21 13:10] LABS: ALBUMIN 4.3 g/dL (3.2-5.5); ALKALINE PHOSPHATASE 51 IU/L (42-121); ALT ALANINE AMINOTRANSFERASE 21 IU/L (10-60); AST ASPARTATE AMINOTRANSFERASE 24 IU/L (10-42); BILIRUBIN,DIRECT < 0.10 mg/dL (0.03-0.18); BILIRUBIN,TOTAL 0.4 mg/dL (0.2-1.0); BUN - BLOOD UREA NITROGEN 22 mg/dL (6-20); GFR - MDRD 55 (>89)
== END 2023-11-21 12:38 | disposition home or self-care (01) ==
LOC: LAB 12:37
PROVIDERS: ATTEND Physician Assistant Medical
DX: B35.1 Tinea unguium (principal)
CPT/HCPCS: 36415; 80076; 82565; 84520

== ENCOUNTER 2023-12-22 09:23 | Outpatient (CLI) | payer MEDICARE ==
[2023-12-22 09:56] LABS: ALBUMIN 3.9 g/dL (3.2-5.5); BILIRUBIN,DIRECT 0.11 mg/dL (0.03-0.18); BILIRUBIN,TOTAL 0.7 mg/dL (0.2-1.0); CREATININE 0.9 mg/dL (0.6-1.3); TOTAL PROTEIN 6.6 g/dL (6.4-8.9)
== END 2023-12-22 09:24 | disposition home or self-care (01) ==
LOC: LAB 09:23
PROVIDERS: ATTEND Physician Assistant Medical
DX: B35.1 Tinea unguium (principal)
CPT/HCPCS: 36415; 80076; 82565; 84520